=== PATIENT | female | born 1990 | race Caucasian/White ===

== ENCOUNTER 2020-09-16 11:24 | Inpatient (IN) ==
[2020-09-16] MEDS ORDERED: OXYTOCIN 30 UNITS/500 ML BAG IV PRN ×2 (12:43)
[2020-09-16 13:06] LABS: Hematocrit (blood only) 37.8 % (37-47); Hemoglobin 13.1 g/dL (12.0-16.0); Mean Corpuscular Hemoglobin 29.6 pg (25-34); Mean Corpuscular Hgb Conc 34.7 g/dL (32-36); Mean Corpuscular Volume 85.5 fL (80-100); Mean Platelet Volume 11.5 fL (7.4-10.4); Platelet Count 246 K/uL (130-400); RDW Coefficient of Variation 13.3 % (11.5-14.5); Red Blood Count 4.42 M/uL (4.2-5.4); White Blood Count 14.91 K/uL (4.8-10.8)
--- NOTE | 2020-09-16 13:11 | History & Physical Report ---
Date of Service September 16, 2020 Assessment & Plan (1) Need for rhogam due to Rh negative mother: Claudette is a 30 y/o female currently at 39-3/7 WGA with an SÁNCHEZ 09/20/20 as determined by LMP who is here for elective IOL (in setting of worsening gallstone symptoms) after successful Dawson bulb placement last night. Her has been notable for cholelithiasis without cholecystitis, fibroid uterus, and an Rh negative status. * s/p Dawson bulb placement last night -- still in place upon arrival today * NST reactive, cat I tracing * continue with eIOL -- initiate pitocin per protocol / anticipate * Tylenol 1g IV q8h p.r.n. for pain management re: biliary pain. If needed can consider stronger IV analgesia, avoiding NSAIDs * patient requesting epidural -- will consult anesthesia when appropriate * plans on * Rh(-) : will require Rhogam, antiD labs * npo except sips/chips, iv lock, labs (2) Supervision of normal intrauterine in primigravida: (3) ADD (attention deficit disorder): (4) Cholelithiasis: (5) Uterine fibroid complicating care, baby not yet delivered: Admission and Anticipated Discharge Date Admission Date: September 16, 2020 History of Present Illness Primary Care Provider: Liudmila Galvan MD Claudette is a 30 y/o female currently at 39-3/7 WGA with an SÁNCHEZ 09/20/20 as determined by LMP who is here for elective IOL (in setting of worsening gallstone symptoms) after successful Dawson bulb placement last night. Her has been notable for cholelithiasis without cholecystitis, fibroid uterus, and an Rh negative status. Says that as of this morning, has had more RUQ pain -- started after nothing in particular. Ate an egg sandwich this morning, which usually does not exacerbate this pain for her. Nothing since that time. Has tried drinking some water. Says it waxes and wanes but is quite noticeable, also extends into her back. No major changes from prior pains she's experienced in this area. Last night, she said she had several sets of contractions that were perhaps 25 minutes apart. None since that time. She said that she noticed some small spots of blood in her underwear this morning, but no gushes or continuous stream / bloody show. No LOF that she can endorse Good movement. Had regular appointments with OB. Labs: (Date 02/14/20) Blood type: B- Antibody screen: negative H.4 -- 09/11 Hct: 39.5 -- 09/11 Plt: 283 -- 09/11 Rubella: immune VDRL/RPR: NR Gonorrhea: negative Chlamydia: negative HIV: negative HbSAg: negative GBS: negative Allergies Allergy/AdvReac Type Severity Reaction Status Date / Time sulfamethoxazole Allergy Intermediate HIVES A Verified 09/15/20 10:21 [From Bactrim] CHILD trimethoprim [From Bactrim] Allergy Intermediate HIVES A Verified 09/15/20 10: CHILD Home Medications Medication Instructions Recorded Confirmed Type prenat.vits,manuel,zkp-nioj-[id number] 1 tab PO DAILY 02/10/20 09/15/20 History valacyclovir 1,000 mg PO DIRECTED PRN 06/01/20 09/15/20 History Patient History Medical History ADD (attention deficit disorder) HSV infection Surgical History History of tonsillectomy History of tooth extraction Family History Mother Hypothyroidism Father Lung cancer Grandfather Lung cancer Family/Other Breast cancer maternal cousin Denies family history of Ovarian cancer Prostate cancer Myocardial infarction Colorectal cancer Social History Smoking Status: Never smoker Second Hand Exposure: No; Hx Alcohol Use: No Hx Substance Use: No Preferred Language: Greenlandic Communication Ability: Effective Air Pollution Inspector Required: No Beliefs That Will Affect Care: None marital status: marital status details: Noe (30) [phone] Current Living Situation: Spouse Current Living Situation Comment: lives with spouse, 2 dogs. 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 Other Information That Helps Us Care for You: No Feels Safe at Home: Yes Safety Concerns: Feels Safe At This Time Childhood Exposure to Second-Hand Smoke: No Dental Care, Regularly: Yes Physical Activity Frequency: 3-4 Times per Week Assistive Devices: None Review of Systems no fever, no chills and no sweats denies headache at present -- maybe a small amount this AM no dyspnea no chest pain, no dyspnea, no dyspnea at rest and no palpitations no dysuria no breast pain Physical Exam Physical Exam: General: Alert, oriented. No acute distress. Cardiac: Regular rate and rhythm, no murmurs/rubs/gallops. Respiratory: Clear to auscultation bilaterally a/p, no wheezes/rales/rhonchi. No increased work of breathing. Symmetrical chest rise. No respiratory distress. Abdomen: Gravid. Mild TTP in the RUQ, Kwon's mildly positive. Pelvic: Per Dr. Alfaro -- /-3; est weight 7-8lb Lower Extremities: No lower extremity edema or swelling. No deep calf pain. Milind's negative bilaterally Results & Data ([facility]) Vital Signs (Past 12 Hours) Vital Signs Temp Pulse Resp BP 09/16/20 12:24 36.8 C 93 H 20 118/77 Monitoring External Monitor Baseline: 145 Variability: moderate 6-25 Accelerations: 15x15 Decelerations: none Tocodynamometer Quality: irregular Supervising Physician Co-Signing Physician Notes Patient seen and evaluated and agree with the above findings and plan Resident Activity Tracking Resident Involvement: Resident Care Provided Care Provided: Adult Hospital Medicine and OB Delivery (1) Cholelithiasis Biliary obstruction: without biliary obstruction Cholecystitis acuity: unspecified acuity Cholecystitis presence: with cholecystitis Cholelithiasis location: gallbladder Qualified Code(s): K80.10 - Calculus of gallbladder with chronic cholecystitis without obstruction
[2020-09-16] MEDS: LACTATED RINGER'S 1,000 ML IV PRN ×4 (13:32→23:12)
[2020-09-16] MEDS ORDERED: fentaNYL citrate 100 MCG/2 ML VIAL ONE ×3 (16:48→20:30)
[2020-09-16] MEDS ORDERED: ePHEDrine sulfate 50 MG/ML AMP ONE ×2 (16:48→20:29)
[2020-09-16] MEDS ORDERED: SODIUM CHLORIDE 0.9% INJ 10 ML VIAL ONE ×3 (16:48→20:29)
[2020-09-16] MEDS ORDERED: BUPIVACAINE 0.25% 30 ML VIAL ONE ×3 (16:48→20:30)
[2020-09-16] MEDS ORDERED: fentaNYL 2MCG/ML ROPIVACAINE 1.25MG/ML 100 ML BAG EPI ONE ×2 (16:49→20:30)
[2020-09-16] MEDS ORDERED: ePHEDrine sulfate 50 MG/ML AMP IV PRN ×2 (16:53→21:01)
[2020-09-16] MEDS ORDERED: diphenhydrAMINE 50 MG/ML VIAL IV PRN ×2 (16:53→21:01)
[2020-09-16] MEDS ORDERED: fentaNYL 2MCG/ML ROPIVACAINE 1.25MG/ML 100 ML BAG EPI PRN ×2 (16:53→21:01)
[2020-09-16] MEDS ORDERED: ONDANSETRON INJ 2 MG/ML 2 ML VIAL IV PRN ×2 (16:53→21:01)
[2020-09-16] MEDS ORDERED: NALOXONE HCL 1 MG in SODIUM CHLORIDE 0.9% 1000ML 1,000 ML IV PRN ×2 (16:53→21:01)
[2020-09-16] MEDS ORDERED: NALOXONE HCL 0.4 MG/1 ML VIAL/CARP IV PRN ×2 (16:53→21:01)
--- NOTE | 2020-09-16 16:54 | Anesthesiology Consultation ---
Date of Service September 16, 2020 Assessment & Plan ASA ASA2 Proposed Anesthesia Anesthesia Type: Labor Epidural Risk / Benefits Reviewed With: PT / POA / Parent / Guardian, Accepts Plan and Informed Consent Obtained History Height/Weight Height: 5 ft 11 in Weight: 101.151 kg Allergies Allergy/AdvReac Type Severity Reaction Status Date / Time sulfamethoxazole Allergy Intermediate HIVES A Verified 09/16/20 17:01 [From Bactrim] CHILD trimethoprim [From Bactrim] Allergy Intermediate HIVES A Verified 09/16/20 17:01 CHILD Medications Home Medications Medication Instructions Recorded Confirmed Last Taken prenat.vits,manuel,klb-[id number]-[id number] 1 tab PO DAILY 02/10/20 09/15/20 09/11/20 08:00 Active Medications Generic Name Dose Route Start Last Admin Trade Name Freq PRN Reason Stop Dose Admin Oxytocin 30 units in 500 mls @ 10 mls/hr 09/16/20 12:43 09/16/20 16:00 Pitocin IV 09/18/20 12:42 0.6 units/hr .Q24H PRN 10 mls/hr Labor Induction/Augmentation Titration Protocol 0.6 UNITS/HR Lactated Ringer's 1,000 mls @ 125 mls/hr 09/16/20 12:43 09/16/20 17:24 Lr IV 09/18/20 12:42 125 mls/hr .Q8H PRN Infusion L&D Protocol Protocol Ropivacaine 100 ml 09/16/20 16:53 09/16/20 17:14 Fentanyl 2mcg/Ml Ropivacaine 1.25mg/Ml 100 Ml Bag EPI 09/17/20 16:52 12 ml PRN PRN Administration Pain R/T Labor Protocol Past Medical History Medical History ADD (attention deficit disorder) HSV infection Exercise / Class Metabolic Activity II 4-5 Yardwork/Stairs/Walk up hill Past Family History Family History Mother Hypothyroidism Father Lung cancer Grandfather Lung cancer Family/Other Breast cancer maternal cousin Denies family history of Ovarian cancer Prostate cancer Myocardial infarction Colorectal cancer Past Surgical History Surgical History History of tonsillectomy History of tooth extraction Past Anesthesia History No Hx of Anesthesia Complications and No Family Hx of Anesthesia Complications History of PONV No Hx of PONV and No Hx of Motion Sickness Social History Smoking Status: Never smoker Hx Alcohol Use: No Hx Substance Use: No substance use type: does not use Review of Systems denies fever/cough/ colds/ chest pain/ SOB/ CANDE denies CANDE Physical Exam Vital Signs Last Vital Signs Temp 36.7 C 09/16/20 16:53 Pulse 80 09/16/20 17:33 Resp 18 09/16/20 17:30 BP 121/77 09/16/20 17:31 Pulse Ox 99 09/16/20 17:33 ENMT Mouth: no TMJ abnormality and no dentition abnormality Thyromental Distance: > or= 3.5 Finger Breadths Mallampati Class: II Neck neck extension not limited Respiratory normal respiratory effort; no respiratory distress Auscultation: lungs clear to auscultation bilaterally Cardiovascular Rate/Rhythm: regular rate and regular rhythm Neurologic moves all extremities Psychiatric Orientation: alert and oriented x 3 Testing Laboratory Results 09/16/20 12:54 Blood Type B Negative 09/16/20 12:54 Antibody Screen NEGATIVE 09/16/20 12:54
[2020-09-16] MEDS ORDERED: NURSING L&D Epidural Breakthrough Pain Update ONE (19:12)
--- NOTE | 2020-09-16 19:46 | Communication Note ---
Date of Service: September 16, 2020 At 1940 , Pt. epidural was bolused w/ 12 ml 0.17% bupivacaine + 100 mcgs fentanyl w/ incremental asp. and injec.;neg asp. Vital signs stable;Pt c/o pain 8/10.
[2020-09-16] MEDS ORDERED: PROMETHAZINE HCL 25 MG in SODIUM CHLORIDE 0.9% 50 ML IV PRN (21:01)
--- NOTE | 2020-09-16 21:04 | Labor Progress Brief Note ---
Date of Service September 16, 2020 Subjective Reason For Note: Routine Evaluation Assessment & Plan (1) Supervision of normal intrauterine in primigravida: Minimal change, AROM clr, Continue Pitocin, Cat 1 Admission and Anticipated Discharge Date Admission Date: September 16, 2020 Physical Exam Genitourinary: OB Exam Abdomen: + vertex Manual OB Exam: + cervical dilation (4.5), + cervical effacement (70), + station -2 and + amniotic fluid clear OB Exam Monitor Tracing: + external FHT monitor used, + external uterine monitor used, + category I and + normal FHT variability Results & Data ([facility]) Vital Signs (Past 12 Hours) Vital Signs Temp Pulse Resp BP Pulse Ox 09/16/20 20:59 82 109/70 09/16/20 20:58 90 100 09/16/20 20:56 105 H 86/53 L 09/16/20 20:55 86 87/50 L 09/16/20 20:53 108 H 100 09/16/20 20:50 89 18 128/63 09/16/20 20:48 83 99 09/16/20 20:43 96 H 138/74 100 09/16/20 20:39 79 94 09/16/20 20:38 81 94 09/16/20 20:33 73 100 09/16/20 20:28 82 98 09/16/20 20:27 69 108/60 09/16/20 20:23 82 100 09/16/20 20:18 76 97 09/16/20 20:13 67 98 09/16/20 20:12 70 111/68 09/16/20 20:08 73 99 09/16/20 20:03 72 98 09/16/20 19:58 74 98 09/16/20 19:57 72 106/69 09/16/20 19:54 74 114/71 09/16/20 19:53 74 97 09/16/20 19:51 69 118/73 09/16/20 19:48 76 117/72 98 09/16/20 19:45 74 118/70 09/16/20 19:43 74 98 09/16/20 19:42 83 18 116/78 09/16/20 19:38 71 98 09/16/20 19:33 78 97 09/16/20 19:31 76 121/69 09/16/20 19:28 73 98 09/16/20 19:23 82 98 09/16/20 19:18 83 99 09/16/20 19:16 75 127/73 09/16/20 19:13 73 98 09/16/20 19:08 80 98 09/16/20 19:03 89 99 09/16/20 19:01 36.7 C 72 18 118/74 09/16/20 18:58 75 98 09/16/20 18:53 86 98 09/16/20 18:48 78 99 09/16/20 18:46 71 118/69 09/16/20 18:43 84 99 09/16/20 18:38 75 99 09/16/20 18:33 88 99 09/16/20 18:31 69 120/75 09/16/20 18:30 20 09/16/20 18:28 75 99 09/16/20 18:23 72 98 09/16/20 18:18 72 99 09/16/20 18:16 73 105/57 L 09/16/20 18:13 76 98 09/16/20 18:08 70 98 09/16/20 18:03 88 97 09/16/20 18:01 85 116/73 09/16/20 18:00 20 09/16/20 17:58 86 98 09/16/20 17:53 71 99 09/16/20 17:48 79 99 09/16/20 17:46 74 128/73 09/16/20 17:43 80 98 09/16/20 17:38 81 99 09/16/20 17:33 80 99 09/16/20 17:31 157 H 121/77 09/16/20 17:30 18 09/16/20 17:29 81 124/80 09/16/20 17:28 83 100 09/16/20 17:27 84 114/69 09/16/20 17:25 83 121/72 09/16/20 17:23 92 H 119/68 100 09/16/20 17:21 78 20 115/67 09/16/20 17:19 96 H 20 129/79 09/16/20 17:18 86 100 09/16/20 17:17 98 H 112/61 09/16/20 17:15 77 119/69 09/16/20 17:13 92 H 139/71 09/16/20 17:11 88 20 136/80 09/16/20 16:53 36.7 C 87 20 124/71 09/16/20 16:31 73 118/84 09/16/20 15:29 36.9 C 75 20 99/55 L 09/16/20 14:31 85 103/57 L 09/16/20 13:37 93 H 117/77 09/16/20 12:24 36.8 C 93 H 20 118/77 Coding Level of Care Code None Diagnoses Supervision of normal intrauterine in primigravida Z34.00
--- NOTE | 2020-09-16 21:56 | Labor Progress Brief Note ---
Date of Service September 16, 2020 Subjective Reason For Note: Routine Evaluation Assessment & Plan (1) Supervision of normal intrauterine in primigravida: Minimal change, AROM clr, Continue Pitocin, Cat 1 Admission and Anticipated Discharge Date Admission Date: September 16, 2020 Physical Exam Genitourinary: OB Exam Abdomen: + vertex Manual OB Exam: + cervical dilation (4.5), + cervical effacement 70%, + station -2 and + amniotic fluid clear OB Exam Monitor Tracing: + external uterine monitor used, + intra- uterine pressure catheter used and + category I; no early decelerations present, no late decelerations present and no variable decelerations Results & Data ([facility]) Vital Signs (Past 12 Hours) Vital Signs Temp Pulse Resp BP Pulse Ox 09/16/20 21:49 81 124/79 09/16/20 21:48 82 100 09/16/20 21:43 74 100 09/16/20 21:38 67 100 09/16/20 21:33 74 100 09/16/20 21:32 67 18 112/61 09/16/20 21:28 67 100 09/16/20 21:23 76 100 09/16/20 21:18 75 100 09/16/20 21:17 75 107/59 L 09/16/20 21:13 74 100 09/16/20 21:12 77 106/58 L 09/16/20 21:08 79 100 09/16/20 21:07 71 18 113/55 L 09/16/20 21:04 36.5 C 71 18 114/67 09/16/20 21:03 84 100 09/16/20 21:01 76 114/71 09/16/20 20:59 82 109/70 09/16/20 20:58 90 100 09/16/20 20:56 105 H 86/53 L 09/16/20 20:55 86 87/50 L 09/16/20 20:53 108 H 100 09/16/20 20:50 89 18 128/63 09/16/20 20:48 83 99 09/16/20 20:43 96 H 138/74 100 09/16/20 20:39 79 94 09/16/20 20:38 81 94 09/16/20 20:33 73 100 09/16/20 20:28 82 98 06/16/21 20:27 69 108/60 09/16/20 20:23 82 100 09/16/20 20:18 76 97 09/16/20 20:13 67 98 09/16/20 20:12 70 111/68 09/16/20 20:08 73 99 09/16/20 20:03 72 98 09/16/20 19:58 74 98 09/16/20 19:57 72 106/69 09/16/20 19:54 74 114/71 09/16/20 19:53 74 97 09/16/20 19:51 69 118/73 09/16/20 19:48 76 117/72 98 09/16/20 19:45 74 118/70 09/16/20 19:43 74 98 09/16/20 19:42 83 18 116/78 09/16/20 19:38 71 98 09/16/20 19:33 78 97 09/16/20 19:31 76 121/69 09/16/20 19:28 73 98 09/16/20 19:23 82 98 09/16/20 19:18 83 99 09/16/20 19:16 75 127/73 09/16/20 19:13 73 98 09/16/20 19:08 80 98 09/16/20 19:03 89 99 09/16/20 19:01 36.7 C 72 18 118/74 09/16/20 18:58 75 98 09/16/20 18:53 86 98 09/16/20 18:48 78 99 09/16/20 18:46 71 118/69 09/16/20 18:43 84 99 09/16/20 18:38 75 99 09/16/20 18:33 88 99 09/16/20 18:31 69 120/75 09/16/20 18:30 20 09/16/20 18:28 75 99 09/16/20 18:23 72 98 09/16/20 18:18 72 99 09/16/20 18:16 73 105/57 L 09/16/20 18:13 76 98 09/16/20 18:08 70 98 09/16/20 18:03 88 97 09/16/20 18:01 85 116/73 09/16/20 18:00 20 09/16/20 17:58 86 98 09/16/20 17:53 71 99 09/16/20 17:48 79 99 09/16/20 17:46 74 128/73 09/16/20 17:43 80 98 09/16/20 17:38 81 99 09/16/20 17:33 80 99 09/16/20 17:31 157 H 121/77 09/16/20 17:30 18 09/16/20 17:29 81 124/80 09/16/20 17:28 83 100 09/16/20 17:27 84 114/69 09/16/20 17:25 83 121/72 09/16/20 17:23 92 H 119/68 100 09/16/20 17:21 78 20 115/67 09/16/20 17:19 96 H 20 129/79 09/16/20 17:18 86 100 09/16/20 17:17 98 H 112/61 09/16/20 17:15 77 119/69 09/16/20 17:13 92 H 139/71 09/16/20 17:11 88 20 136/80 09/16/20 16:53 36.7 C 87 20 124/71 09/16/20 16:31 73 118/84 09/16/20 15:29 36.9 C 75 20 99/55 L 09/16/20 14:31 85 103/57 L 09/16/20 13:37 93 H 117/77 09/16/20 12:24 36.8 C 93 H 20 118/77 Coding Level of Care Code None Diagnoses Supervision of normal intrauterine in primigravida Z34.00
[2020-09-17] MEDS: LACTATED RINGER'S 1,000 ML IV PRN ×2 (03:16→08:31)
--- NOTE | 2020-09-17 06:59 | Labor Progress Brief Note ---
Date of Service September 17, 2020 Subjective Reason For Note: Routine Evaluation Assessment & Plan (1) Supervision of normal intrauterine in primigravida: Minimal change, AROM clr, Continue Pitocin, IUP placed, Cat 1 Admission and Anticipated Discharge Date Admission Date: September 16, 2020 Physical Exam Genitourinary: OB Exam Abdomen: + vertex Manual OB Exam: + cervical dilation (4.5), + cervical effacement 70%, + station -2 and + amniotic fluid clear OB Exam Monitor Tracing: + external uterine monitor used, + intra- uterine pressure catheter used, + category I and + normal FHT variability; no early decelerations present, no late decelerations present and no variable decelerations IUP placed Results & Data ([facility]) Vital Signs (Past 12 Hours) Vital Signs Temp Pulse Resp BP Pulse Ox 09/17/20 06:53 97 H 100 09/17/20 06:48 94 H 118/73 100 09/17/20 06:43 99 H 100 09/17/20 06:38 99 H 97 09/17/20 06:33 107 H 132/78 100 09/17/20 06:28 108 H 100 09/17/20 06:23 108 H 100 09/17/20 06:18 99 H 100 09/17/20 06:17 114 H 122/82 09/17/20 06:13 105 H 100 09/17/20 06:08 110 H 100 09/17/20 06:03 108 H 128/82 100 09/17/20 05:58 103 H 100 09/17/20 05:53 105 H 100 09/17/20 05:48 101 H 100 09/17/20 05:47 104 H 122/80 09/17/20 05:43 110 H 100 09/17/20 05:38 104 H 100 09/17/20 05:34 117 H 127/87 09/17/20 05:33 122 H 100 09/17/20 05:28 110 H 100 09/17/20 05:23 104 H 100 09/17/20 05:18 115 H 100 09/17/20 05:17 112 H 122/80 09/17/20 05:13 121 H 100 09/17/20 05:09 36.7 C 18 09/17/20 05:08 114 H 100 09/17/20 05:03 104 H 100 09/17/20 05:02 112 H 120/81 09/17/20 04:58 104 H 100 09/17/20 04:53 111 H 100 09/17/20 04:49 106 H 115/77 09/17/20 04:48 103 H 99 09/17/20 04:43 105 H 99 09/17/20 04:38 105 H 99 09/17/20 04:33 99 H 100 09/17/20 04:32 108 H 18 115/75 09/17/20 04:28 100 H 100 09/17/20 04:23 97 H 100 09/17/20 04:18 94 H 100 09/17/20 04:17 103 H 120/77 09/17/20 04:13 89 100 09/17/20 04:08 91 H 100 09/17/20 04:04 88 18 121/76 09/17/20 04:03 85 100 09/17/20 03:58 83 100 09/17/20 03:53 94 H 100 09/17/20 03:49 83 106/64 09/17/20 03:48 83 100 09/17/20 03:43 87 100 09/17/20 03:40 92 H 89 L 09/17/20 03:38 87 100 09/17/20 03:34 100 H 125/65 09/17/20 03:33 83 100 09/17/20 03:28 99 H 100 09/17/20 03:27 113 H 90 09/17/20 03:23 82 100 09/17/20 03:18 83 111/73 100 09/17/20 03:13 114 H 100 09/17/20 03:11 36.9 C 18 09/17/20 03:08 94 H 100 09/17/20 03:03 99 H 121/79 100 09/17/20 03:00 16 09/17/20 02:58 97 H 100 09/17/20 02:53 95 H 100 09/17/20 02:48 89 127/77 100 09/17/20 02:43 84 100 09/17/20 02:38 106 H 100 09/17/20 02:33 110 H 98 09/17/20 02:30 18 09/17/20 02:28 102 H 100 09/17/20 02:23 87 100 09/17/20 02:19 90 122/79 09/17/20 02:18 89 100 09/17/20 02:13 118 H 100 09/17/20 02:08 96 H 100 09/17/20 02:03 92 H 100 09/17/20 02:02 98 H 122/77 09/17/20 01:58 90 100 09/17/20 01:53 89 100 09/17/20 01:48 88 100 09/17/20 01:47 96 H 125/72 09/17/20 01:43 97 H 100 09/17/20 01:38 107 H 100 09/17/20 01:34 94 H 18 125/79 09/17/20 01:33 93 H 100 09/17/20 01:28 93 H 100 09/17/20 01:25 36.6 C 18 09/17/20 01:23 126 H 100 09/17/20 01:18 119 H 133/79 86 L 09/17/20 01:13 79 100 09/17/20 01:08 77 100 09/17/20 01:03 81 117/70 100 09/17/20 00:58 72 100 09/17/20 00:53 76 100 09/17/20 00:51 95 H 80 L 09/17/20 00:49 68 101/56 L 09/17/20 00:48 68 100 09/17/20 00:43 73 100 09/17/20 00:38 69 100 09/17/20 00:34 72 99/58 L 09/17/20 00:33 71 100 09/17/20 00:28 68 100 09/17/20 00:23 69 100 09/17/20 00:18 69 18 100/56 L 100 09/17/20 00:13 71 100 09/17/20 00:08 70 100 09/17/20 00:03 67 100 09/17/20 00:02 68 100/58 L 09/16/20 23:58 67 100 09/16/20 23:53 68 100 09/16/20 23:52 79 94 09/16/20 23:49 36.6 C 74 18 98/54 L 09/16/20 23:48 86 100 09/16/20 23:43 78 100 09/16/20 23:38 82 100 09/16/20 23:33 83 124/75 100 09/16/20 23:31 75 90 09/16/20 23:28 66 100 09/16/20 23:25 101 H 94 09/16/20 23:23 83 100 09/16/20 23:20 88 92 09/16/20 23:18 67 111/73 100 09/16/20 23:13 81 100 09/16/20 23:08 91 H 100 09/16/20 23:03 70 119/75 100 09/16/20 22:58 69 100 09/16/20 22:53 67 100 09/16/20 22:48 70 100 09/16/20 22:47 77 16 115/75 09/16/20 22:43 70 100 09/16/20 22:38 84 100 09/16/20 22:33 82 110/75 100 09/16/20 22:28 75 100 09/16/20 22:23 70 100 09/16/20 22:18 73 117/74 100 09/16/20 22:13 85 100 09/16/20 22:12 36.5 C 18 09/16/20 22:08 36.5 C 85 18 100 09/16/20 22:07 98 H 93 09/16/20 22:04 88 116/74 09/16/20 22:03 86 100 09/16/20 21:58 114 H 100 09/16/20 21:56 92 H 92 09/16/20 21:53 81 100 09/16/20 21:49 81 124/79 09/16/20 21:48 82 100 09/16/20 21:43 74 100 09/16/20 21:38 67 100 09/16/20 21:33 74 100 09/16/20 21:32 67 18 112/61 09/16/20 21:28 67 100 09/16/20 21:23 76 100 09/16/20 21:18 75 100 09/16/20 21:17 75 107/59 L 09/16/20 21:13 74 100 09/16/20 21:12 77 106/58 L 09/16/20 21:08 79 100 09/16/20 21:07 71 18 113/55 L 09/16/20 21:04 36.5 C 71 18 114/67 09/16/20 21:03 84 100 09/16/20 21:01 76 114/71 09/16/20 20:59 82 109/70 09/16/20 20:58 90 100 09/16/20 20:56 105 H 86/53 L 09/16/20 20:55 86 87/50 L 09/16/20 20:53 108 H 100 09/16/20 20:50 89 18 128/63 09/16/20 20:48 83 99 09/16/20 20:43 96 H 138/74 100 09/16/20 20:39 79 94 09/16/20 20:38 81 94 09/16/20 20:33 73 100 09/16/20 20:28 82 98 09/16/20 20:27 69 108/60 09/16/20 20:23 82 100 09/16/20 20:18 76 97 09/16/20 20:13 67 98 09/16/20 20:12 70 111/68 09/16/20 20:08 73 99 09/16/20 20:03 72 98 09/16/20 19:58 74 98 09/16/20 19:57 72 106/69 09/16/20 19:54 74 114/71 09/16/20 19:53 74 97 09/16/20 19:51 69 118/73 09/16/20 19:48 76 117/72 98 09/16/20 19:45 74 118/70 09/16/20 19:43 74 98 09/16/20 19:42 83 18 116/78 09/16/20 19:38 71 98 09/16/20 19:33 78 97 09/16/20 19:31 76 121/69 09/16/20 19:28 73 98 09/16/20 19:23 82 98 09/16/20 19:18 83 99 09/16/20 19:16 75 127/73 09/16/20 19:13 73 98 09/16/20 19:08 80 98 09/16/20 19:03 89 99 09/16/20 19:01 36.7 C 72 18 118/74 Coding Level of Care Code None Diagnoses Supervision of normal intrauterine in primigravida Z34.00
[2020-09-17] MEDS ORDERED: OXYTOCIN 30 UNITS/500 ML BAG IV PRN (10:45)
[2020-09-17] MEDS ORDERED: SUPERCREAM 0.870% 15 GM JAR EXT PRN (10:45)
[2020-09-17] MEDS ORDERED: IBUPROFEN 600 MG TAB PO PRN (10:45)
[2020-09-17] MEDS ORDERED: HYDROCORTISONE ACETATE 25 MG SUPP PR PRN (10:45)
[2020-09-17] MEDS ORDERED: ACETAMINOPHEN 325 MG TAB PO PRN (10:45)
[2020-09-17] MEDS ORDERED: DIPHTHERIA/TETANUS/PERTUSSIS 0.5 ML SYR/VIAL IM ONE (10:45)
[2020-09-17] MEDS ORDERED: BENZOCAINE 20% AER SPR 82.5 GM CAN EXT PRN (10:45)
[2020-09-17] MEDS ORDERED: bisacodyL 10 MG SUPP PR PRN (10:45)
--- NOTE | 2020-09-17 10:54 | Delivery Summary ---
Vaginal Delivery Summary Date of Service September 17, 2020 This is a 30-year-old 1 P0 white female who presents at 39-4/7 weeks for induction because of ongoing gallbladder symptoms. She received Pitocin augmentation of her labor and effective and epidural analgesia. She pushed effectively over intact perineum for delivery of a viable female infant. After the head was delivered the rest of the infant delivered easily and was placed on the mother's abdomen for further attention and drying. The was vigorous. With gentle traction on the umbilical cord it avulsed, therefore manual removal of the placenta was performed. The placenta was able to be removed intact. Exploration of the uterine cavity revealed no retained tissue. Dilute Pitocin was used to to control bleeding. The perineum was intact with a superficial abrasion on the right labia. Estimated blood loss 400 cc. mother and infant doing well after delivery. Vaginal Delivery Summary [facility] Vaginal Delivery Charge Delivery Type Details: [facility] OB Procedure charges OB Charges 23882 Placenta (manual removal )
--- NOTE | 2020-09-17 12:31 | Anesthesia Procedure Note ---
Date of Service September 17, 2020 Anesthesia Post Epidural Note Vital Signs Vital Signs: Temp Pulse Resp BP Pulse Ox 37.2 C 119 H 18 121/70 86 L 09/17/20 09:00 09/17/20 12:27 09/17/20 11:36 09/17/20 12:21 09/17/20 12:27 Pain Intensity Abdomen: Pain Intensity: 7 Notes Mental Status: alert / awake / arousable and participated in evaluation Patient Amnestic to Procedure: No Nausea / Vomiting: adequately controlled Pain: adequately controlled Airway Patency, RR, SpO2: stable & adequate BP & HR: stable & adequate Hydration State: stable & adequate Neuraxial Anesthesia: was administered and sensory block is resolving Anesthetic Complications: no major complications apparent and Pt Satisfied with anesthetic care Epidural: Removed without complications and With tip intact
[2020-09-17] MEDS: DOCUSATE SODIUM 100 MG CAP PO SCH (20:58)
--- NOTE | 2020-09-18 07:02 | Obstetrical Progress Note ---
Date of Service September 18, 2020 Assessment & Plan (1) : S/p Day 1 - Feels well today. Eating well, voiding well, ambulating well. - Pain well-controlled with ibuprofen 600mg Q4H PRN. - Vital signs reviewed and WNL. - Hemoglobin reviewed. 13.1 (antepartum) - Blood Type: B-, antibody negative, GBS negative, Rubella Immune, COVID-19 negative - Continue routine care: encourage ambulation, monitor and control pain with Motrin PRN, continue regular OB diet, monitor lochia - Encourage breast feeding. - Pt counselled on discharge instructions - After discharge, will have 6-wk follow-up with Dr. Mullen Admission and Anticipated Discharge Date Admission Date: September 16, 2020 Supervising Physician Co-Signing Physician Notes Resident Physician Supervision Note: I interviewed and examined the patient. Discussed with Dr. Glasgow and agree with findings and plan as documented in the note. Any exceptions or clarifications are listed here: [None] Documented By: Zoraida Larkin MD, FACOG Subjective HPI Claudette Marvin is a 30 y/o female who is PPD 1 spontaneous vaginal delivery at 39 4/7 weeks. She reports feeling well overall this morning. No abdominal cramping and mild pain well managed on analgesics. Voiding well. Tolerating meals overnight without difficulty. Patient has been able to ambulate some. passing gas and no bowel movement. Has persistent lochia with some improvement this morning. Currently . Review of Systems Review of Systems: ROS Denies fever or chills. Denies shortness of breath or cough. Denies chest pain. Denies breast pain. Denies dysuria. Denies leg pain or leg swelling. Physical Exam Physical Exam: PE General: Alert, oriented. No acute distress. Cardiac: Regular rate and rhythm. No murmurs. Respiratory: Clear to auscultation bilaterally a/p, no wheezes/rales/rhonchi. No increased work of breathing. Symmetrical chest rise. No respiratory distress. Abdomen: Soft, nontender, nondistended. Bowel sounds present. Uterus: Uterine fundus firm, palpable 1 cm below umbilicus. Lower Extremities: No lower extremity edema or swelling. No deep calf pain. Milind's negative bilaterally. Results & Data ([facility]) Vital Signs (Past 12 Hours) Vital Signs Temp Pulse Resp BP 09/18/20 03:55 36.5 C 106 H 18 106/68 09/17/20 23:40 36.8 C 86 18 102/67 Resident Activity Tracking Resident Involvement: Resident Care Provided Care Provided: Adult Hospital Medicine (1) Weeks of gestation: 24 weeks Qualified Code(s): Z3A.24 - 24 weeks gestation of
[2020-09-18] MEDS: DOCUSATE SODIUM 100 MG CAP PO SCH (07:27)
[2020-09-18 07:42] LABS: Hemoglobin 10.5 g/dL (12.0-16.0); Mean Corpuscular Hemoglobin 29.2 pg (25-34); Mean Corpuscular Hgb Conc 33.9 g/dL (32-36); Mean Corpuscular Volume 86.1 fL (80-100); Mean Platelet Volume 11.1 fL (7.4-10.4); Platelet Count 200 K/uL (130-400); RDW Coefficient of Variation 13.7 % (11.5-14.5); RDW Standard Deviation 42.4 fL (36.4-46.3); White Blood Count 19.04 K/uL (4.8-10.8)
[2020-09-18] MEDS ORDERED: PRENATAL VITAMIN 1 TAB PO SCH (08:00)
[2020-09-18] MEDS ORDERED: bisacodyL 5 MG TABEC PO SCH (20:00)
== END 2020-09-18 15:28 | disposition home or self-care (01) | DRG 807 ==
LOC: 4S1 12:16 → 4S2 09-17 17:40

== ENCOUNTER 2022-09-22 07:25 | Inpatient (IN) ==
--- NOTE | 2022-09-22 07:50 | History & Physical Report ---
Date of Service September 22, 2022 Assessment & Plan (1) Encounter for induction of labor: (2) Need for rhogam due to Rh negative mother: Plan - Patient admitted to labor and delivery for initiation of medical induction of labor - Plan for Dawson bulb placement in AM followed by labor augmentation with Pitocin - Patient w/o evidence of regular contractions, thus oxytocin augmentation of labor will be started per protocol - Once contractions are progressing, will consider ROM - Will anticipate epidural as contractions arise - Labs pending Admission and Anticipated Discharge Date Admission Date: September 22, 2022 History of Present Illness Chief Complaint: Induction Primary Care Provider: Liudmila Galvan MD Claudette is a 32F currently at 40 0/7 with SÁNCHEZ 09/22/22 determined by LMP who is presenting to L&D for induction. Complications: Rh negative mother Reason for Induction/: Post-date Movement: Yes Fluid Loss/ROM: Yes Bloody show/discharge: Light, last night External FHT and uterine monitor: Category 1, tracing reactive, good FHT variability Last OB appointment: 09/21/22, regular care Labs: Blood Type: B - Antibody Screen: Negative Hg/Hct (today): Pending WBC/Plt (today): Pending Rubella: Immune RPR: Non-reactive Gonorrhea: Negative Chlamydia: Negative HIV: Negative HbSAg: Negative GBS: Negative ROS: - Denies fever, chills, sweats - Denies dyspnea or pleuritic pain - Denies chest pain, palpitations, or pressure - Denies breast pain - Denies dysuria - Denies headache or visual changes Allergies Allergy/AdvReac Type Severity Reaction Status Date / Time sulfamethoxazole Allergy Intermediate Hives (as Verified 09/21/22 10:48 [From Bactrim] child) trimethoprim [From Bactrim] Allergy Intermediate Hives (as Verified 09/21/22 10:48 child) mivacurium Allergy Unknown Acetylcholinesterase Verified 09/21/22 10:48 deficiency ("Borderline") succinylcholine Allergy Unknown Acetylcholinesterase Verified 09/21/22 10:48 deficiency ("Borderline") Home Medications Medication Instructions Recorded Confirmed Type prenat.vits,manuel,jgg-aubc-[id number] 1 tab PO DAILY 07/13/21 09/21/22 History Patient History Medical History Acetylcholinesterase deficiency ADD (attention deficit disorder) History of COVID-19 HSV infection Need for rhogam due to Rh negative mother Uterine fibroid Varicella vaccination Surgical History History of anesthesia reaction History of cholecystectomy History of tonsillectomy History of tooth extraction Family History Mother Hypothyroidism Father Lung cancer Multiple myeloma Grandfather Lung cancer Family/Other Breast cancer Denies family history of Ovarian cancer Prostate cancer Myocardial infarction Colorectal cancer Social History (Updated 09/22/22 @ 07:50 by Maya Hooper RN) Smoking Status: Never smoker Second Hand Exposure: No; Do You Dip or Chew Tobacco: No; Hx Alcohol Use: No Hx Substance Use: No Preferred Language: [place]an Communication Ability: Effective Visual Impairment: No Limitations Hearing Ability: Normal Facilities Clerk Required: No Beliefs That Will Affect Care: None marital status: marital status details: Noe Marvin (32) [phone] Current Living Situation: Spouse Current Living Situation Comment: lives with spouse, child, 2 dogs. 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 Other Information That Helps Us Care for You: No Feels Safe at Home: Yes Safety Concerns: Feels Safe At This Time Childhood Exposure to Second-Hand Smoke: No Diet: regular Dental Care, Regularly: Yes Physical Activity Frequency: 3-4 Times per Week Seatbelt Use: always Sunscreen Use: Yes Assistive Devices: None OB History Past Pregnancies Del. Date GA wks Lbr Lgth wt Sex Type del Anes Place Del Prov ? Comment 09/17/20 39 6lb 15.1oz F Ep idural [facility] Dr. Mullen No 11/17/21 11 Aborted-Spontaneous Dilation and curretage USED CAR MANAGER History USED CAR MANAGER Hx: No surgeries or abnormal PAPs STI Hx: No prior STI Physical Exam Physical Exam: General: Alert, oriented. No acute distress. Cardiac: Regular rate and rhythm, no murmurs/rubs/gallops. Respiratory: Clear to auscultation bilaterally a/p, no wheezes/rales/rhonchi. No increased work of breathing. Symmetrical chest rise. No respiratory distress. Abdomen: Gravid; reactive FHTs; Position: Vertex by Iain Maneuver Pelvic: JOSHUA pending per Dr. Liz (see attending attestation) Lower Extremities: No lower extremity edema or swelling. No deep calf pain. Milind's negative bilaterally. Supervising Physician Co-Signing Physician Notes Resident Physician Supervision Note: I interviewed and examined the patient. Discussed with Dr. Carlin and agree with findings and plan as documented in the note. Any exceptions or clarifications are listed here: [None] Documented By: Laura Liz MD, FACOG Resident Activity Tracking Resident Involvement: Resident Care Provided Care Provided: OB Delivery
[2022-09-22] MEDS ORDERED: OXYTOCIN 30 UNITS/500 ML BAG IV PRN ×3 (08:39→21:51)
[2022-09-22] MEDS ORDERED: LIDOCAINE 1% LOCAL 20 ML VIAL INFIL PRN (08:39)
--- NOTE | 2022-09-22 09:06 | Obstetrical Progress Note ---
Date of Service September 22, 2022 Assessment & Plan Admission and Anticipated Discharge Date Admission Date: September 22, 2022 Subjective We did attempt cervical Dawson however the balloon would not stay and kept fal ling out after reassessment of her cervix I think she is probably 2 cm we will start Pitocin induction despite inability to get the Dawson catheter into her appropriate place in the cervix Results & Data Vital Signs (Past 12 Hours) Vital Signs Pulse Resp BP 09/22/22 07:55 105 H 130/72 09/22/22 07:48 18 PG Care Time/CCT Total # of Minutes Spent Total Time Spent with Patient: Total time spent is greater than 50% in coordination of care (as documented) at patient's floor/unit and/or counseling patient: Coding Level of Care Code None Diagnoses
[2022-09-22] MEDS: LACTATED RINGER'S 1,000 ML IV PRN ×3 (09:07→20:13)
[2022-09-22 09:24] LABS: Hematocrit (blood only) 32.6 % (37.0-47.0); Hemoglobin 10.7 g/dl (12.0-16.0); Mean Corpuscular Hgb Conc 32.8 g/dL (32.0-36.0); Mean Corpuscular Volume 79.1 fL (80.0-100.0); Mean Platelet Volume 11.6 fL (9.4-12.4); Platelet Count 236 K/uL (130-400); RDW Coefficient of Variation 14.6 % (11.5-14.5); RDW Standard Deviation 41.1 fL (36.4-46.3); Red Blood Count 4.12 M/uL (4.20-5.40); White Blood Count 9.72 K/ul (4.8-10.8)
[2022-09-22] MEDS ORDERED: ePHEDrine sulfate 50 MG/ML AMP ONE (11:27)
[2022-09-22] MEDS ORDERED: SODIUM CHLORIDE 0.9% PF INJ 10 ML VIAL ONE (11:27)
[2022-09-22] MEDS ORDERED: fentaNYL citrate PF 100 MCG/2 ML VIAL ONE (11:27)
[2022-09-22] MEDS ORDERED: BUPIVACAINE 0.25% PF 30 ML VIAL ONE (11:28)
[2022-09-22] MEDS ORDERED: LIDOCAINE 2%/EPINEPHRINE 1:200,000 20 ML PF ONE (11:28)
[2022-09-22] MEDS ORDERED: fentaNYL 2MCG/ML ROPIVACAINE 1.25MG/ML 100 ML BAG EPI ONE (11:28)
--- NOTE | 2022-09-22 12:18 | Anesthesiology Consultation ---
Date of Service September 22, 2022 Assessment & Plan Chart Review Chart Review: Acceptable Risk for Labor Epidural Consults Requested none ASA ASA2 Proposed Anesthesia Anesthesia Type: Labor Epidural Risk / Benefits Reviewed With: PT / POA / Parent / Guardian, Accepts Plan and Informed Consent Obtained History Height/Weight Height: 5 ft 10 in Weight: 104.326 kg Allergies Allergy/AdvReac Type Severity Reaction Status Date / Time sulfamethoxazole Allergy Intermediate Hives (as Verified 09/21/22 10:48 [From Bactrim] child) trimethoprim [From Bactrim] Allergy Intermediate Hives (as Verified 09/21/22 10:48 child) mivacurium Allergy Unknown Acetylcholinesterase Verified 09/21/22 10:48 deficiency ("Borderline") succinylcholine Allergy Unknown Acetylcholinesterase Verified 09/21/22 10:48 deficiency ("Borderline") Medications Home Medications Medication Instructions Recorded Confirmed Last Taken prenat.vits,manuel,yot-zzew-hkiuv 1 tab PO DAILY 07/13/21 09/21/22 11/17/21 10:00 Active Medications Generic Name Dose Route Start Last Admin Trade Name Freq PRN Reason Stop Dose Admin Lactated Ringer's 1,000 mls @ 125 mls/hr 09/22/22 08:39 09/22/22 09:07 Lr IV 09/24/22 08:38 125 mls/hr .Q8H PRN Administration L&D Protocol Protocol Oxytocin 30 units in 500 mls @ 8 mls/hr 09/22/22 08:39 09/22/22 10:50 Pitocin IV 09/24/22 08:38 0.48 units/hr .Q24H PRN 8 mls/hr Labor Induction/Augmentation Titration Protocol 0.48 UNITS/HR Past Medical History Medical History Acetylcholinesterase deficiency Patient's aunt went in coma with surgery > Father and brother tested and positive/Patient tested "borderline" ADD (attention deficit disorder) no meds History of COVID-21 Mar 2021, mild, no further issues HSV infection Hx cold sores Need for rhogam due to Rh negative mother Supervision of normal intrauterine in primigravida Uterine fibroid monitoring Uterine fibroid complicating care, baby not yet delivered Varicella vaccination Exercise / Class Metabolic Activity II 4-5 Yardwork/Stairs/Walk up hill Past Family History Family History Mother Hypothyroidism Father Lung cancer Multiple myeloma Grandfather Lung cancer Family/Other Breast cancer maternal cousin Denies family history of Ovarian cancer Prostate cancer Myocardial infarction Colorectal cancer Past Surgical History Surgical History History of anesthesia reaction Patient's aunt went in coma with surgery > Father and brother tested and positive/Patient tested "borderline" History of cholecystectomy 10/28/20: Grade 1 view with head lifted. MAC 3, ETT 7.0. No postop issues per anesthesia progress note. History of tonsillectomy History of tooth extraction Past Anesthesia History No Hx of Anesthesia Complications and No Family Hx of Anesthesia Complications History of PONV No Hx of PONV and No Hx of Motion Sickness Social History Smoking Status: Never smoker Do You Dip or Chew Tobacco: No Hx Alcohol Use: No Hx Substance Use: No substance use type: does not use Physical Exam Vital Signs Last Vital Signs Temp 98.1 F 09/22/22 11:20 Pulse 75 09/22/22 12:15 Resp 18 09/22/22 11:20 BP 117/71 09/22/22 12:15 Pulse Ox 99 09/22/22 12:13 ENMT Mouth: no dentition abnormality Thyromental Distance: > or= 3.5 Finger Breadths Mallampati Class: II Neck normal visual inspection Respiratory normal respiratory effort Auscultation: lungs clear to auscultation bilaterally Cardiovascular Rate/Rhythm: regular rate and regular rhythm Testing Laboratory Results 09/22/22 09:01 Antibody Screen NEGATIVE 09/22/22 09:01
[2022-09-22] MEDS ORDERED: BUPIVACAINE 0.25% PF 30 ML VIAL EPI PRN (12:36)
[2022-09-22] MEDS ORDERED: LIDOCAINE 2% MPF LOCAL 5 ML VIAL EPI PRN (12:36)
[2022-09-22] MEDS ORDERED: fentaNYL citrate PF 100 MCG/2 ML VIAL EPI PRN (12:36)
[2022-09-22] MEDS ORDERED: NALOXONE HCL 1 MG in SODIUM CHLORIDE 0.9% 1000ML 1,000 ML IV PRN (12:36)
[2022-09-22] MEDS ORDERED: fentaNYL citrate PF 100 MCG/2 ML VIAL EPI STA (12:36)
[2022-09-22] MEDS ORDERED: ROPIVACAINE 0.5% PF 5 MG/ML 20 ML VIAL EPI PRN (12:36)
[2022-09-22] MEDS ORDERED: NALBUPHINE HCL INJ 10 MG/ML AMP IV PRN (12:36)
[2022-09-22] MEDS ORDERED: BUPIVACAINE 0.25% PF 30 ML VIAL EPI STA (12:36)
[2022-09-22] MEDS ORDERED: NALOXONE HCL 0.4 MG/1 ML VIAL/CARP IV PRN (12:36)
[2022-09-22] MEDS ORDERED: ePHEDrine sulfate 50 MG/ML AMP IV PRN (12:36)
[2022-09-22] MEDS ORDERED: LIDOCAINE 2%/EPINEPHRINE 1:200,000 20 ML PF EPI STA (12:36)
[2022-09-22] MEDS ORDERED: SODIUM CHLORIDE 0.9% PF INJ 10 ML VIAL EPI STA (12:36)
[2022-09-22] MEDS ORDERED: diphenhydrAMINE 50 MG/ML VIAL IV PRN (12:36)
[2022-09-22] MEDS ORDERED: SODIUM CHLORIDE 0.9% PF INJ 10 ML VIAL EPI PRN (12:36)
[2022-09-22] MEDS ORDERED: ONDANSETRON INJ 2 MG/ML 2 ML VIAL IV PRN (12:36)
[2022-09-22] MEDS ORDERED: fentaNYL 2MCG/ML ROPIVACAINE 1.25MG/ML 100 ML BAG EPI PRN (12:36)
[2022-09-22] MEDS ORDERED: NURSING L&D Epidural Breakthrough Pain Update ONE (13:40)
--- NOTE | 2022-09-22 20:53 | Anesthesia Procedure Note ---
Date of Service September 22, 2022 Anesthesia Epidural Re-Dose Vital Signs Temp Pulse Resp BP Pulse Ox 98.1 F 88 18 114/71 93 09/22/22 19:10 09/22/22 20:50 09/22/22 19:10 09/22/22 20:42 09/22/22 20:50 Notes Pain Intensity: 2 Dilatation (cm): 9.0 Effacement (%): 100 Called by nursing to evaluate epidural as the patient is having increased pain. The epidural was re-dosed with the following medications after negative aspiration of the epidural catheter for CSF/HEME. 4mL of 0.25% Bupivacaine and 50mcg of fentanyl After Epidural Re-Dose Mental Status: alert / awake / arousable Pain: improving with treatment Airway Patency, RR, SpO2: stable & adequate BP & HR: stable & adequate
--- NOTE | 2022-09-22 21:27 | Delivery Summary ---
Vaginal Delivery Summary Date of Service September 22, 2022 Vaginal Delivery Summary Patient induced electively at 40 weeks second baby group B strep negative COVID- negative was induced with Pitocin and then artificial rupture of membranes had an epidural progressed to fully dilated pushed over 2 total contractions delivering baby in occiput anterior position fluid was clear there was no nuchal cord gentle traction the baby no excessive force baby was delivered easily and was vigorous live male infant cord clamped and cut cord blood obtained placenta removed with traction small first-degree tear repaired with 3-0 Vicryl on delivery of the placenta oxytocin was started and uterine tone improved sponge and instrument counts were correct at estimated blood loss 200 mL
[2022-09-22] MEDS ORDERED: IBUPROFEN 600 MG TAB PO PRN (21:51)
[2022-09-22] MEDS ORDERED: BENZOCAINE 20% AER SPR 82.5 GM CAN EXT PRN (21:51)
[2022-09-22] MEDS ORDERED: DIPHTHERIA/TETANUS/PERTUSSIS Vaccine (Tdap, Age 7+yrs) 0.5mL SYR/VL IM ONE (21:51)
[2022-09-22] MEDS ORDERED: ACETAMINOPHEN 325 MG TAB PO PRN (21:51)
[2022-09-22] MEDS ORDERED: HYDROCORTISONE ACETATE 25 MG SUPP PR PRN (21:51)
[2022-09-22] MEDS ORDERED: oxyCODONE/ACETAMINOPHEN 5mg/325mg TAB PO PRN (21:51)
--- NOTE | 2022-09-22 22:03 | Anesthesia Procedure Note ---
Date of Service September 22, 2022 Anesthesia Post Epidural Note Vital Signs Vital Signs: Temp Pulse Resp BP Pulse Ox 98.1 F 99 H 18 146/83 H 91 09/22/22 19:10 09/22/22 21:57 09/22/22 19:10 09/22/22 21:57 09/22/22 21:26 Pain Intensity Abdomen: Pain Intensity: 5 Notes Mental Status: alert / awake / arousable and participated in evaluation Nausea / Vomiting: adequately controlled Pain: adequately controlled Airway Patency, RR, SpO2: stable & adequate BP & HR: stable & adequate Hydration State: stable & adequate Neuraxial Anesthesia: was administered and sensory block is resolving Anesthetic Complications: no major complications apparent and Pt Satisfied with anesthetic care Epidural: Removed without complications and With tip intact
--- NOTE | 2022-09-23 06:37 | Obstetrical Progress Note ---
Date of Service September 23, 2022 Assessment & Plan (1) Prior miscarriage with , antepartum: day 1 from delivery late last night doing well minimal bleeding pain controlled no extremity pain we will continue current care Subjective Ambulation: ambulating normally Voiding: no voiding problems Passing Gas:: Yes Diet Tolerance:: regular diet Lochia:: Small Constitutional: + as per Subjective / HPI Physical Exam Constitutional WD/WN, vitals as above well developed and well nourished Respiratory normal respiratory effort, lungs clear to auscultation normal respiratory effort Cardiovascular RRR, no murmur, no edema Gastrointestinal (Abdomen) normal bowel sounds, soft, nontender, no hepatosplenomegaly Results & Data Vital Signs (Past 12 Hours) Vital Signs Temp Pulse Pulse Pulse Resp BP BP 09/23/22 03:20 97.5 F L 72 18 100/66 09/22/22 23:50 97.9 F 97 H 16 121/75 09/22/22 23:44 98.2 F 87 18 124/79 09/22/22 19:10 98.1 F 18 09/22/22 23:22 96 H 120/69 09/22/22 23:12 107 H 117/73 09/22/22 22:57 93 H 152/89 H 09/22/22 22:42 83 118/74 09/22/22 22:27 100 H 125/75 09/22/22 22:12 86 129/79 09/22/22 21:57 99 H 146/83 H 09/22/22 21:42 105 H 126/96 09/22/22 21:27 98 H 135/88 09/22/22 21:26 106 H 09/22/22 21:23 94 H 09/22/22 21:18 99 H 09/22/22 21:13 157 H 09/22/22 21:08 97 H 09/22/22 21:03 79 09/22/22 20:58 75 09/22/22 20:57 74 123/78 09/22/22 20:53 81 09/22/22 20:50 88 09/22/22 20:48 88 09/22/22 20:43 75 09/22/22 20:42 73 114/71 09/22/22 20:38 72 09/22/22 20:33 79 09/22/22 20:28 77 09/22/22 20:27 93 H 117/63 09/22/22 20:23 73 09/22/22 20:22 84 09/22/22 20:18 70 09/22/22 20:13 69 09/22/22 20:12 73 129/62 09/22/22 20:08 64 09/22/22 20:03 67 09/22/22 19:58 70 09/22/22 19:57 66 115/64 09/22/22 19:53 73 09/22/22 19:48 85 09/22/22 19:43 83 09/22/22 19:42 83 117/66 09/22/22 19:38 73 09/22/22 19:37 71 110/62 09/22/22 19:34 77 106/61 09/22/22 19:33 73 09/22/22 19:32 79 115/72 09/22/22 19:30 81 114/73 09/22/22 19:28 69 09/22/22 19:27 81 109/57 L 09/22/22 19:23 65 09/22/22 19:18 67 09/22/22 19:13 09/22/22 19:13 84 09/22/22 19:13 80 132/71 09/22/22 19:08 72 09/22/22 19:03 70 09/22/22 18:58 71 09/22/22 18:57 65 120/66 09/22/22 18:53 67 09/22/22 18:48 67 09/22/22 18:43 09/22/22 18:43 65 09/22/22 18:43 67 116/63 09/22/22 18:38 68 Pulse Ox O2 Del Method 09/23/22 03:20 97 Room Air 09/22/22 23:50 98 Room Air 09/22/22 23:44 98 Room Air 09/22/22 19:10 09/22/22 23:22 09/22/22 23:12 09/22/22 22:57 09/22/22 22:42 09/22/22 22:27 09/22/22 22:12 09/22/22 21:57 09/22/22 21:42 09/22/22 21:27 09/22/22 21:26 91 09/22/22 21:23 98 06/22/23 21:18 99 09/22/22 21:13 100 09/22/22 21:08 100 09/22/22 21:03 98 09/22/22 20:58 98 09/22/22 20:57 09/22/22 20:53 99 09/22/22 20:50 93 09/22/22 20:48 98 09/22/22 20:43 99 09/22/22 20:42 09/22/22 20:38 98 09/22/22 20:33 98 09/22/22 20:28 98 09/22/22 20:27 09/22/22 20:23 99 09/22/22 20:22 92 09/22/22 20:18 99 09/22/22 20:13 99 09/22/22 20:12 09/22/22 20:08 98 09/22/22 20:03 98 09/22/22 19:58 98 09/22/22 19:57 09/22/22 19:53 98 09/22/22 19:48 98 09/22/22 19:43 98 09/22/22 19:42 09/22/22 19:38 99 09/22/22 19:37 09/22/22 19:34 09/22/22 19:33 99 09/22/22 19:32 09/22/22 19:30 09/22/22 19:28 99 09/22/22 19:27 09/22/22 19:23 99 09/22/22 19:18 99 09/22/22 19:13 99 09/22/22 19:13 09/22/22 19:13 09/22/22 19:08 99 09/22/22 19:03 99 09/22/22 18:58 98 09/22/22 18:57 09/22/22 18:53 99 09/22/22 18:48 98 09/22/22 18:43 99 09/22/22 18:43 09/22/22 18:43 09/22/22 18:38 98
[2022-09-23 07:37] LABS: Hematocrit (blood only) 31.2 % (37.0-47.0); Hemoglobin 10.3 g/dl (12.0-16.0); Mean Corpuscular Hemoglobin 26.2 pg (25.0-34.0); Mean Corpuscular Volume 79.4 fL (80.0-100.0); Platelet Count 232 K/uL (130-400); RDW Coefficient of Variation 14.6 % (11.5-14.5); Red Blood Count 3.93 M/uL (4.20-5.40)
[2022-09-23] MEDS ORDERED: PRENATAL VITAMIN 1 TAB PO SCH (08:00)
[2022-09-23] MEDS: DOCUSATE SODIUM 100 MG CAP PO SCH ×2 (08:03→20:47)
--- NOTE | 2022-09-23 14:14 | Ultrasound Report ---
US venous doppler LE RT HISTORY: 32 years-old Female r/o DVT, calf pain acute pain and swelling of the right lowe r extremity COMPARISON: 05/20/2022 TECHNIQUE: Multiple real-time sonographic images of the right lower extremity deep venous structures were obtained assessing grayscale appearance, color and spectral flow. FINDINGS: Normal flow, compressibility, phasicity and augmentation. IMPRESSION: No sonographic evidence of deep venous thrombosis. ACT 112: Negative or not required by law. The above report was generated using voice recognition software. It may contain grammatical, syntax o r spelling errors. Electronically signed by: J Carlos Moss M.D. 09/23/2022 2:12 PM
--- NOTE | 2022-09-23 14:18 | Obstetrical Progress Note ---
Date of Service September 23, 2022 Assessment & Plan Admission and Anticipated Discharge Date Admission Date: September 22, 2022 Subjective Pt requesting DC home. Rt leg pain - venous doppler neg for DVT. OK for DC 24h after delivery. Results & Data Vital Signs (Past 12 Hours) Vital Signs Temp Pulse Resp BP Pulse Ox O2 Del Method 09/23/22 12:30 37.1 C 85 18 104/66 97 Room Air 09/23/22 08:00 36.9 C 90 18 120/81 98 Room Air 09/23/22 03:20 36.4 C L 72 18 100/66 97 Room Air PG Care Time/CCT Total # of Minutes Spent Total Time Spent with Patient: Total time spent is greater than 50% in coordination of care (as documented) at patient's floor/unit and/or counseling patient: Coding Level of Care Code None Diagnoses
[2022-09-23] MEDS ORDERED: bisacodyL 5 MG TABEC PO SCH (20:00)
[2022-09-24] MEDS ORDERED: bisacodyL 10 MG SUPP PR PRN (21:51)
== END 2022-09-23 21:38 | disposition home or self-care (01) | DRG 806 ==
LOC: 4S1 07:25 → 4E2 23:57

== ENCOUNTER 2023-05-23 15:26 | Inpatient (IN) ==
--- NOTE | 2023-05-23 16:18 | Emergency Department Note ---
Impression & Plan Sepsis, Mastitis, Leukocytosis ED Provider Note NAME: YVETTE MARVIN AGE: 32 SEX: F : 1990 ARRIVES VIA: Walk-In INFORMANT: Patient ED PROVIDER(S): Oswaldo Juarez DO CHIEF COMPLAINT: fever, vomiting and breast pain HPI: Patient is a 32-year-old female who presents to the ER for right breast pain as well as fevers, nausea, and vomiting. Her symptoms started about 2 days ago with a crack in her nipple that she noticed. She is still pumping as her child is currently 7 months old. Patient notes that she has some left mid abdominal pain associated with nausea, and vomiting as well. Fevers have been as high as 102. She denies any headache or change in vision. No chest pain or shortness of breath. No cough or congestion. No other exacerbating or remitting factors. No dysuria, urgency, or frequency. No vaginal bleeding or vaginal discharge. No sick contacts that she is aware of. ADDITIONAL HISTORY OBTAINED: Per HPI Chronic Medical/Social Conditions Affecting Care: Per HPI PAST MEDICAL HISTORY:See Below PAST SURGICAL HISTORY:See Below FAMILY HISTORY:See Below SOCIAL HISTORY:See Below HOME MEDICATIONS:See Below ALLERGIES:See Below VITALS:See Below PHYSICAL EXAMINATION: GENERAL: Sitting up in bed, alert, well appearing, well nourished, no distress, non-toxic EYE EXAM: normal conjunctiva. PERRL and EOM's grossly intact. OROPHARYNX: no exudate, no erythema, lips, buccal mucosa, and tongue normal and mucous membranes are moist BREAST: Right breast with small area of erythema just lateral to the nipple at around 9:00. Engorgement of the duct at 11-10 o'clock. Evaluated with Abby at bedside NECK: supple, no nuchal rigidity, no adenopathy, non-tender LUNGS: Clear to auscultation. Normal chest wall mechanics HEART: no murmurs, S1 normal and S2 normal ABDOMEN: abdomen soft, non-tender, normo-active bowel sounds, no masses, no rebound or guarding. UPPER EXTREMITIES: upper extremities are grossly normal. LOWER EXTREMITIES: No pitting edema. NEURO EXAM: Normal sensorium, cranial nerves II-XII grossly intact, normal speech, no gross weakness of arms, no gross weakness of legs. MEDICAL DECISION MAKING: Patient is a 32-year-old female who presents ER for right breast pain. IV was established blood was obtained. Labs show mild leukocytosis of 18,000. No significant anemia. BMP along LFTs bilirubin and troponins were negative. Mag slightly low. UA was contaminated. was negative. CT abdomen pelvis showed no acute pathology with the pain in the left mid abdomen. Chest x-ray was clean. She was given IV Rocephin and fluids and updated bedside. She was discussed with the hospitalist that she was febrile tachycardic with a persistent heart rate in the 120s to 130s in light of IV fluid resuscitation with a likely mastitis. Consults/Care Managements Discussions: Per [facility] Triage Nursing notes reviewed. Limited review of prior medical records performed Vital Signs: reviewed and remarkable for febrile, tachycardic Differential diagnosis: Differential diagnosis includes etiologies such as sepsis, UTI, pneumonia, metabolic, electrolyte abnormalities, cardiac sources, intracerebral event, toxicologic, neurological, as well as others were entertained. ER treatment provided: See below Diagnostics interpreted by me include EKG and cardiac monitoring as listed below: -Cardiac Monitoring: An order was placed for continuous cardiac monitoring. The monitor shows a rate of 155 with sinus rhythm. -ECG: Sinus tachycardia rate 133 Normal axis No PVCs QTc 416 -Laboratory studies:Interpreted by me as stated above in MDM and shown below. Imaging studies: Xrays: As interpreted by me: Portable AP upright 1 view of the chest shows no focal CTs show: CT abdomen pelvis was Procedures:none Critical Care: None Past Med/Surg History Medical History Acetylcholinesterase deficiency Patient's aunt went in coma with surgery > Father and brother tested and positive/Patient tested "borderline" ADD (attention deficit disorder) no meds History of COVID-21 Mar 2021, mild, no further issues HSV infection Hx cold sores Need for rhogam due to Rh negative mother Supervision of normal intrauterine in primigravida Uterine fibroid monitoring Uterine fibroid complicating care, baby not yet delivered Varicella vaccination Surgical History History of anesthesia reaction Patient's aunt went in coma with surgery > Father and brother tested and positive/Patient tested "borderline" History of cholecystectomy 10/28/20: Grade 1 view with head lifted. MAC 3, ETT 7.0. No postop issues per anesthesia progress note. History of tonsillectomy History of tooth extraction Family History Mother Hypothyroidism Father Lung cancer Multiple myeloma Grandfather Lung cancer Family/Other Breast cancer maternal cousin Denies family history of Ovarian cancer Prostate cancer Myocardial infarction Colorectal cancer Social History (Updated 09/22/22 @ 07:50 by Maya Hooper RN) Smoking Status: Never smoker Second Hand Exposure: No; Do You Dip or Chew Tobacco: No; Hx Alcohol Use: No Hx Substance Use: No Preferred Language: Cymraes Communication Ability: Effective Visual Impairment: No Limitations Hearing Ability: Normal Mold Designer Required: No Beliefs That Will Affect Care: None marital status: marital status details: Noe Marvin (32) [phone] Current Living Situation: Spouse Current Living Situation Comment: lives with spouse, child, 2 dogs. 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 Feels Safe at Home: Yes Childhood Exposure to Second-Hand Smoke: No Diet: regular Dental Care, Regularly: Yes Physical Activity Frequency: 3-4 Times per Week Seatbelt Use: always Sunscreen Use: Yes Assistive Devices: None Allergies Allergies Allergy/AdvReac Type Severity Reaction Status Date / Time sulfamethoxazole Allergy Intermediate Hives (as Verified 05/23/23 18:45 [From Bactrim] child) trimethoprim [From Bactrim] Allergy Intermediate Hives (as Verified 05/23/23 18:45 child) mivacurium Allergy Unknown Acetylcholinesterase Verified 05/23/23 18:45 deficiency ("Borderline") succinylcholine Allergy Unknown Acetylcholinesterase Verified 05/23/23 18:45 deficiency ("Borderline") Home Meds Home Medications Medication Instructions Recorded Confirmed prenat.vits,manuel,[id number] 1 tab PO DAILY 07/13/21 05/23/23 Previous Rx's Medication Instructions Recorded triamcinolone acetonide 0.1 % 1 applic topical DAILY #15 grams 05/04/23 topical cream Results & Data (ED) Vital Signs Vital Signs - 24 hr 05/23/23 16:02 05/23/23 16:21 Temperature 37.7 C H Temperature Source Oral Pulse Rate 159 H 132 H Pulse Rhythm Regular Pulse Strength Normal Respiratory Rate 18 Respiratory Effort / Characteristics Non-Labored Spontaneous Respiratory Depth Normal Respiratory Pattern Regular Blood Pressure 96/66 L Blood Pressure Mean 76 Blood Pressure Position Sitting Pulse Oximetry 98 Oxygen Delivery Method Room Air Sepsis Recent Fever Within 48 Hours Yes Sepsis New/Unexplained Change in Mental Status No Sepsis Action Taken by Nursing Physician Notified Laboratory Data 05/23/23 16:25 05/23/23 16:25 Lab Results 05/23/23 05/23/23 05/23/23 Range/Units 16:25 16:40 17:10 WBC 18.39 H (4.8-10.8) K/ul RBC 5.00 (4.20-5.40) M/uL Hgb 14.8 (12.0-16.0) g/dl Hct 42.6 (37.0-47.0) % MCV 85.2 (80.0-100.0) fL MCH 29.6 (25.0-34.0) pg MCHC 34.7 (32.0-36.0) g/dL RDW Std Deviation 38.1 (36.4-46.3) fL RDW Coeff of [place] 12.3 (11.5-14.5) % Plt Count 271 (130-400) K/uL MPV 11.1 (9.4-12.4) fL Immature Gran % (Auto) 0.4 % Neut % (Auto) 88.7 % Lymph % (Auto) 5.2 % [place] % (Auto) 5.4 % Eos % (Auto) 0.1 % Baso % (Auto) 0.2 % Neut # (Auto) 16.31 H (1.40-6.50) K/uL Lymph # (Auto) 0.96 L (1.20-3.40) K/uL [place] # (Auto) 1.00 H (0.11-0.59) K/uL Eos # (Auto) 0.01 (0.00-0.50) K/uL Baso # (Auto) 0.04 (0.00-0.20) K/uL Immature Gran # (Auto) 0.07 (0.01-0.20) K/uL Sodium 136 (136-145) mmol/L Potassium 3.5 (3.5-5.1) mmol/L Chloride 99 (98-107) mmol/L Carbon Dioxide 26 (21-32) mmol/L Anion Gap 11 (3-11) BUN 12 (6-23) mg/dl Creatinine 0.79 (0.6-1.2) mg/dl Est Cr Clr Drug Dosing 127.5 ml/min Est GFR ( Amer) 115.6 ml/min Est GFR (Non-Af Amer) 99.8 ml/min BUN/Creatinine Ratio 15.2 (10-20) Glucose 119 H (70-99(Fasting)) mg/dl Lactate 1.2 (0.4-2.0) mmol/L Calcium 9.3 (8.6-10.3) mg/dl Magnesium 1.5 L (1.7-2.4) mg/dl Total Bilirubin 0.7 (0.2-1.0) mg/dl Direct Bilirubin 0.1 (0-0.2) mg/dl AST 15 (13-39) U/L ALT 22 (7-52) U/L Alkaline Phosphatase 81 (34-104) U/L Troponin I High Sens 2.4 (0-14) pg/ml Total Protein 7.8 (6.0-8.3) gm/dl Albumin 4.5 (3.4-5.0) gm/dl Procalcitonin 0.05 (0-0.5) ng/ml Urine Color Dark Yellow Urine Appearance Clear (Clear) Urine pH 8.0 H (4.5-7.5) Ur Specific [place] 1.025 (1.000-1.030) Urine Protein Trace H (Negative) Urine Glucose (UA) Negative (Negative) Urine Ketones 2+ H (Negative) Urine Blood Negative (Negative) Urine Nitrite Negative (Negative) Urine Bilirubin Negative (Negative) Urine Urobilinogen Negative (Negative) Ur Leukocyte Esterase Trace H (Negative) Urine WBC (Auto) 5-10 H (0-5) /hpf Urine RBC (Auto) 5-10 H (0-4) /hpf U Hyaline Cast (Auto) 0 (0-5) /lpf U Epithel Cells (Auto) >30 H (0-5) /lpf Urine Bacteria (Auto) Negative (Negative) Urine Test Negative (Negative) POC Ur Test NEG (NEG) Administered Medications Discontinued Medications Acetaminophen (Acetaminophen 500 Mg Tab) 1,000 mg PO NOW STA Stop: 05/23/23 19:15 Last Admin: 05/23/23 19:51 Dose: 1,000 mg Documented By: FERNANDO Sodium Chloride (Nss) 1,000 mls @ 999 mls/hr IV .Q1H1M WILTON Stop: 05/23/23 18:30 Last Infusion: 05/23/23 20:56 Dose: Infused Documented By: Admin: 05/23/23 20:35 Dose: Not Given Documented By: Admin: 05/23/23 16:38 Dose: 999 mls/hr Documented By: CPB Ceftriaxone Sodium (Rocephin) 2,000 mg in 50 mls @ 100 mls/hr IV NOW STA Stop: 05/23/23 16:46 Last Infusion: 05/23/23 17:20 Dose: Infused Documented By: Admin: 05/23/23 16:33 Dose: 100 mls/hr Documented By: CPB Sodium Chloride (Nss) 1,000 mls @ 999 mls/hr IV .Q1H1M WILTON Stop: 05/23/23 20:13 Last Admin: 05/23/23 19:52 Dose: 999 mls/hr Documented By: FERNANDO Magnesium Sulfate/Dextrose (Magnesium Sulfate / D5w) 1 gm in 100 mls @ 100 mls/hr IV NOW STA Stop: 05/23/23 20:14 Last Infusion: 05/23/23 21:58 Dose: Infused Documented By: Admin: 05/23/23 19:51 Dose: 100 mls/hr Documented By: FERNANDO Magnesium Sulfate/Dextrose (Magnesium Sulfate / D5w) 1 gm in 100 mls @ 100 mls/hr IV NOW STA Stop: 05/23/23 20:50 Last Infusion: 05/23/23 20:29 Dose: 0 mls/hr Documented By: Admin: 05/23/23 19:55 Dose: 100 mls/hr Documented By: FERNANDO Ioversol (Optiray 320 500ml) 87 ml IV ONCE ONE Stop: 05/23/23 17:51 Last Admin: 05/23/23 17:51 Dose: 87 ml Documented By: JOHANNE Ioversol (Optiray 320 125ml) 117 ml IV ONCE ONE Stop: 05/23/23 20:25 Last Admin: 05/23/23 20:25 Dose: 117 ml Documented By: HUAN Imaging Data Radiologist's Impression: Chest X-Ray 05/23/23 16:17 XR chest 1V portable CLINICAL HISTORY: Sepsis TECHNIQUE: Single frontal radiograph of the chest was obtained. Comparison: None available at the time of this dictation. FINDINGS: No lines and tubes are seen. The cardiomediastinal silhouette is normal. The lungs are clear. No evidence of pleural effusion or pneumothorax. IMPRESSION: No acute abnormalities and in particular no radiographic evidence of pneumonia. ACT 112: Negative or not required by law. Electronically signed by: Eliceo Miller M.D. 05/23/2023 5:36 PM Abdomen/Pelvis CT 05/23/23 16:18 CT abd pelvis IV con only CLINICAL HISTORY: l flank pain sepsis TECHNIQUE: Helical axial images of the abdomen and pelvis were obtained and displayed. Automated dose lowering techniques and/or adjustment according to patient size were utilized for this exam3 This exam was performed with intravenous contrast. CT DOSE: 1311. mGy.cm COMPARISON: None available at the time of this dictation. FINDINGS: Lower chest: No acute abnormality. Liver: Unremarkable. No focal lesions are seen. Gallbladder and biliary tree: Patient is status post cholecystectomy. No intra- or extrahepatic biliary ductal dilation. Pancreas: Unremarkable, no focal lesions. Spleen: Unremarkable. Adrenals: Unremarkable. Kidneys and ureters: Unremarkable. Bladder: Limited evaluation due to underdistention. Reproductive organs: Calcified exophytic lesion arising from the uterus likely represents a fibroid. Bowel: Unremarkable. Lymph nodes Retroperitoneal: Unremarkable. Pelvic: Unremarkable. Mesenteric: Unremarkable. Peritoneum: Normal. Vessels: Unremarkable. Abdominal wall: Unremarkable. Bones: Unremarkable. IMPRESSION: No acute abnormalities to explain left flank pain. ACT 112: Negative or not required by law. Electronically signed by: Eliceo Miller M.D. 05/23/2023 6:17 PM Discharge Plan Visit Data Chief Complaint: Breast Pain/Problems Stated Complaint: BREAST PAIN ED Provider: Oswaldo Juarez Discharge Problem: Sepsis, Mastitis, Leukocytosis Patient Disposition: Admitted As Inpatient Discharge Instructions Interventions: ED Discharge Assessment Last Done: 05/23/23 20:36 Discharge Problem: Sepsis Qualifiers: Sepsis type: sepsis due to unspecified organism Sepsis acute organ dysfunction status: unspecified Qualified Code(s): A41.9 - Sepsis, unspecified organism Leukocytosis Qualifiers: Leukocytosis type: unspecified Qualified Code(s): D72.829 - Elevated white blood cell count, unspecified
[2023-05-23] MEDS: cefTRIAXone SODIUM 2,000 MG/50 ML BAG IV STA (16:33)
[2023-05-23] MEDS: SODIUM CHLORIDE 0.9% 1,000 ML IV SCH ×3 (16:38→20:00)
[2023-05-23 16:57] LABS: Basophils # (auto) 0.04 K/uL (0.00-0.20); Basophils % (auto) 0.2 %; Eosinophils # (auto) 0.01 K/uL (0.00-0.50); Eosinophils % (auto) 0.1 %; Hematocrit (blood only) 42.6 % (37.0-47.0); Hemoglobin 14.8 g/dl (12.0-16.0); Immature Granulocytes # (auto) 0.07 K/uL (0.01-0.20); Immature Granulocytes % (auto) 0.4 %; Lymphocytes # (auto) 0.96 K/uL (1.20-3.40); Lymphocytes % (auto) 5.2 %; Mean Corpuscular Hemoglobin 29.6 pg (25.0-34.0); Mean Corpuscular Hgb Conc 34.7 g/dL (32.0-36.0); Mean Corpuscular Volume 85.2 fL (80.0-100.0); Mean Platelet Volume 11.1 fL (9.4-12.4); Monocytes % (auto) 5.4 %; Neutrophils # (auto) 16.31 K/uL (1.40-6.50); Neutrophils % (auto) 88.7 %; Platelet Count 271 K/uL (130-400); RDW Coefficient of Variation 12.3 % (11.5-14.5); RDW Standard Deviation 38.1 fL (36.4-46.3); White Blood Count 18.39 K/ul (4.8-10.8)
[2023-05-23 17:13] LABS: Albumin Level 4.5 gm/dl (3.4-5.0); BUN Creatinine Ratio 15.2 (10-20); Bilirubin Direct 0.1 mg/dl (0-0.2); Bilirubin,Total 0.7 mg/dl (0.2-1.0); Calcium 9.3 mg/dl (8.6-10.3); Creatinine Clr Calc Pharmacy 127.5 ml/min; Est GFR (African American) 115.6 ml/min; Est GFR (Non-African American) 99.8 ml/min; Magnesium 1.5 mg/dl (1.7-2.4); Potassium 3.5 mmol/L (3.5-5.1); Total Protein 7.8 gm/dl (6.0-8.3)
[2023-05-23 17:18] LABS: Troponin I High Sensitivity 2.4 pg/ml (0-14)
[2023-05-23 17:32] LABS: Appearance Urine Clear (Clear); Bacteria Urine Automated Negative (Negative); Bilirubin Urine Negative (Negative); Blood Urine Negative (Negative); Cast Urine Automated 0 /lpf (0-5); Color Urine Dark Yellow; Epithelial Cell Urine Auto >30 /lpf (0-5); Glucose Urine UA Negative (Negative); Ketones Urine 2+ (Negative); Leukocyte Esterase Urine Trace (Negative); Nitrite Urine Negative (Negative); Specific Gravity Urine 1.025 (1.000-1.030); Urobilinogen Urine Negative (Negative)
[2023-05-23 17:35] LABS: Protein Urine Trace (Negative)
--- NOTE | 2023-05-23 17:38 | XRay Report ---
XR chest 1V portable CLINICAL HISTORY: Sepsis TECHNIQUE: Single frontal radiograph of the chest was obtained. Comparison: None available at the time of this dictation. FINDINGS: No lines and tubes are seen. The cardiomediastinal silhouette is normal. The lungs are clear. No evid ence of pleural effusion or pneumothorax. IMPRESSION: No acute abnormalities and in particular no radiographic evidence of pneumonia. ACT 112: Negative or not required by law. Electronically signed by: Eliceo Miller M.D. 05/23/2023 5:36 PM
[2023-05-23] MEDS: OPTIRAY 320 500ml IV ONE (17:51)
[2023-05-23 17:54] LABS: Pregnancy Test, Urine Negative (Negative)
--- NOTE | 2023-05-23 18:19 | CT Scan Report ---
CT abd pelvis IV con only CLINICAL HISTORY: l flank pain sepsis TECHNIQUE: Helical axial images of the abdomen and pelvis were obtained and displayed. Automated dose lowering techniques and/or adjustment according to patient size were utilized for this exam3 This ex am was performed with intravenous contrast. CT DOSE: 1311. mGy.cm COMPARISON: None available at the time of this dictation. FINDINGS: Lower chest: No acute abnormality. Liver: Unremarkable. No focal lesions are seen. Gallbladder and biliary tree: Patient is status post cholecystectomy. No intra- or extrahepatic bilia ry ductal dilation. Pancreas: Unremarkable, no focal lesions. Spleen: Unremarkable. Adrenals: Unremarkable. Kidneys and ureters: Unremarkable. Bladder: Limited evaluation due to underdistention. Reproductive organs: Calcified exophytic lesion arising from the uterus likely represents a fibroid. Bowel: Unremarkable. Lymph nodes Retroperitoneal: Unremarkable. Pelvic: Unremarkable. Mesenteric: Unremarkable. Peritoneum: Normal. Vessels: Unremarkable. Abdominal wall: Unremarkable. Bones: Unremarkable. IMPRESSION: No acute abnormalities to explain left flank pain. ACT 112: Negative or not required by law. Electronically signed by: Eliceo Miller M.D. 05/23/2023 6:17 PM
[2023-05-23] MEDS ORDERED: ALUMINUM/MAGNESIUM SUSP 30 ML UDC PO PRN (19:20)
[2023-05-23] MEDS ORDERED: POLYETHYLENE (MIRALAX) 17 GM PACK PO PRN (19:20)
[2023-05-23] MEDS ORDERED: ONDANSETRON INJ 2 MG/ML 2 ML VIAL IV PRN (19:20)
--- NOTE | 2023-05-23 19:37 | History & Physical Report ---
Date of Service May 23, 2023 Assessment & Plan (1) Mastitis: (2) Patient is a currently breast-feeding mother: (3) Hypomagnesemia: (4) SIRS (systemic inflammatory response syndrome): Plan 32 y/o female with no prev PMH, here due to Mastitis, fever, tachycardia Mastitis SIRS criteria (>HR (132), Elevated WBC (18.39) Patient with induration and erythema on right breast. Warm to the touch Admit to Telemetry WBC: 18.39 UTI: negative for UTI Procalcitonin 0.05 BP: 96/66 - 2 L Bolus of NSS Ceftriaxone 2 gm given in ER MRSA nares ordered if positive will broad ABX NSS 125 ml/hr Blood culture Acetaminophen for fever Rocephin 2 g daily CBC am , CMP am Upper left flank pain Leg discomfort CT abd/Pel: negative for any acute pathology CXR: negative Will proceed with CTA chest as well with Venous Doppler LE CATRACHO to rule out embolus Hypomagnesemia Mag 1.5L Replace with 2 gm now Repeat tomorrow am Breast pump Dispo: Telemetry DVT prophylaxis: Hold for now, Low risk, SCDs Diet: Regular diet Code: Full code History of Present Illness Primary Care Provider: Liudmila Galvan MD 32 y/o old female with no significant PMH here due to fever and chill this morning. she is currently a 7 months old. Was diagnosed with breast eczema 2 days ago after she noted a crack on her right nipple. She is being using triamcinolone acetonide 0.1% topical cream daily. This morning she wake up with chills and had a fever of 104 F. She also states some left mild abdominal pain associated with nausea and vomiting. Additionally she refers some lower extremities discomfort. She denied any headaches, chest pain , palpitations, SOB, no cough, no congestion. No sick contacts. Denied any voiding problems At arrival at ER patient with tachycardia, Fever of 37.7C, hypotension of 96/66. 1L of NSS bolus given. Ceftriaxone 2 gm given as well. CBC with leukocytosis at 18.39. Cr: 0.79. Magnesium at 1.5. CXR with no acute abnormalities, CT abdomen/Pelvis: no acute abnormalities. U/A: negative for UTI. Magnesium 2 g for replacement ordered. Another 1 bolus of NSS given. Acetaminophen 1,000 mg once. CTA chest ordered now. MRSA nares test order now Allergies Allergy/AdvReac Type Severity Reaction Status Date / Time sulfamethoxazole Allergy Intermediate Hives (as Verified 05/23/23 18:45 [From Bactrim] child) trimethoprim [From Bactrim] Allergy Intermediate Hives (as Verified 05/23/23 18:45 child) mivacurium Allergy Unknown Acetylcholinesterase Verified 05/23/23 18:45 deficiency ("Borderline") succinylcholine Allergy Unknown Acetylcholinesterase Verified 05/23/23 18:45 deficiency ("Borderline") Home Medications Medication Instructions Recorded Confirmed Type prenat.vits,manuel,[id number] 1 tab PO DAILY 07/13/21 05/23/23 History triamcinolone acetonide 0.1 % 1 applic topical DAILY #15 grams 05/04/23 05/23/23 Rx topical cream Past Med/Surg History Medical History Acetylcholinesterase deficiency Patient's aunt went in coma with surgery > Father and brother tested and positive/Patient tested "borderline" ADD (attention deficit disorder) no meds History of COVID-21 Mar 2021, mild, no further issues HSV infection Hx cold sores Need for rhogam due to Rh negative mother Supervision of normal intrauterine in primigravida Uterine fibroid monitoring Uterine fibroid complicating care, baby not yet delivered Varicella vaccination Surgical History History of anesthesia reaction Patient's aunt went in coma with surgery > Father and brother tested and positive/Patient tested "borderline" History of cholecystectomy 10/28/20: Grade 1 view with head lifted. MAC 3, ETT 7.0. No postop issues per anesthesia progress note. History of tonsillectomy History of tooth extraction Family History Mother Hypothyroidism Father Lung cancer Multiple myeloma Grandfather Lung cancer Family/Other Breast cancer maternal cousin Denies family history of Ovarian cancer Prostate cancer Myocardial infarction Colorectal cancer Social History (Updated 09/22/22 @ 07:50 by Maya Hooper RN) Smoking Status: Never smoker Second Hand Exposure: No; Do You Dip or Chew Tobacco: No; Hx Alcohol Use: No Hx Substance Use: No Preferred Language: Czech Communication Ability: Effective Visual Impairment: No Limitations Hearing Ability: Normal Operating Room Tech Required: No Beliefs That Will Affect Care: None marital status: marital status details: Noe Marvin (32) [phone] Current Living Situation: Spouse Current Living Situation Comment: lives with spouse, child, 2 dogs. 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 Feels Safe at Home: Yes Childhood Exposure to Second-Hand Smoke: No Diet: regular Dental Care, Regularly: Yes Physical Activity Frequency: 3-4 Times per Week Seatbelt Use: always Sunscreen Use: Yes Assistive Devices: None Review of Systems Review of Systems: All systems reviewed & are unremarkable except as noted in HPI & below Physical Exam Constitutional: well developed Eyes: PERRL, conjunctivae normal, anicteric sclerae Respiratory: normal respiratory effort, lungs clear to auscultation Cardiovascular: Extremities: normal capillary refill; no calf tenderness and no edema Tachycardia, no murmurs, regular rhythm Chest (Breasts): Breast: + breast tenderness Additional Comments: Right breast with erythema surrounding the nipple. Small crack on the Right nipple. Warm to touch. Induration. Engorgement of the duct at 11-10 o'clock. Gastrointestinal (Abdomen): normal bowel sounds, soft, nontender, no hepatosplenomegaly Results & Data Results & Data Vital Signs (Past 12 Hours) Vital Signs Temp Pulse Resp BP Pulse Ox O2 Del Method 05/23/23 16:21 132 H 05/23/23 16:02 37.7 C H 159 H 18 96/66 L 98 Room Air Supervising Physician Co-Signing Physician Notes Attending addendum: I have physically seen this patient, have supervised the medical residents activities, and agree with the H&P unless as otherwise noted. Assessment and Plan: Right sided mastitis in a breast-feeding female- Admit to monitored bed SIRS criteria met with heart rate in the 140s to 150s, and elevated blood WBC of 18.39, and hypotension with blood pressure 96/66 Patient is status post 3 L normal saline in the ED With continued heart rate in the 130s to 150s Due to state, there was concern regarding possible PE as cause of tachycardia. CT angiography PE protocol was negative for PE Patient continued to receive IV fluids, and heart rate did ultimately return to the 100s to 110s category Ceftriaxone 2 g IV daily MRSA swab Acetaminophen 650 mg p.o. every 6 hours as needed for mild pain or fever Toradol 15 mg IV every 6 hours as needed for moderate pain or persistent temperature Hypomagnesemia/hypokalemia- Magnesium sulfate 2 g IV given for low magnesium of 1.5 Potassium initially 3.5, was likely hemoconcentrated and actually lower NSS + KCl 20 mEq at 125 MLS per hour Repeat laboratories in a.m. May be the remaining cause after rehydration, for cause of increased heart rate Resident Activity Tracking Resident Involvement: Resident Care Provided Care Provided: Adult Hospital Medicine
[2023-05-23] MEDS: MAGNESIUM SULFATE / D5W 1 GM/100 ML BAG IV STA ×2 (19:51→19:55)
[2023-05-23] MEDS: ACETAMINOPHEN 500 MG TAB PO STA (19:51)
[2023-05-23] MEDS: OPTIRAY 320 125ml IV ONE (20:25)
--- NOTE | 2023-05-23 20:52 | CT Scan Report ---
Exam(s): CTA CHEST With Contrast IV Amt: 117 ml optiray 320 EXAM: CT Angiography Chest With Intravenous Contrast CLINICAL HISTORY: Reason for exam: Tachycardia. TECHNIQUE: Axial computed tomographic angiography images of the chest with intravenous contrast. CTDI is 19 mGy and DLP is 526.39 mGy-cm. Automated exposure control was utilized for the study. A dose lowering technique was utilized adhering to the principles of ALARA. MIP reconstructed images were created and reviewed. CONTRAST: Patient received 117 ml optiray 320 of IV contrast COMPARISON: No relevant prior studies available. FINDINGS: Pulmonary arteries: Unremarkable. No pulmonary embolism. Aorta: No acute findings. No thoracic aortic aneurysm. Lungs: Unremarkable. No mass. No consolidation. Pleural space: Unremarkable. No significant effusion. No pneumothorax. Heart: Unremarkable. No cardiomegaly. No significant pericardial effusion. No evidence of RV dysfunction. Bones/joints: No acute fracture. No dislocation. Soft tissues: Unremarkable. Lymph nodes: Unremarkable. No enlarged lymph nodes. IMPRESSION: Normal chest CTA. No pulmonary embolism. Electronically signed by: Tobias Mcleod MD 05/23/23 20:51 PM
--- NOTE | 2023-05-23 22:09 | Ultrasound Report ---
Exam(s): US VENOUS BILATERAL LOWER EXTREMITIES EXAM: US Duplex Bilateral Lower Extremities Veins CLINICAL HISTORY: Reason for exam: Leg pain, tachycardia. TECHNIQUE: Real-time duplex ultrasound scan of the bilateral lower extremity veins integrating B-mode two-dimensional vascular structure, Doppler spectral analysis, color flow Doppler imaging and compression. COMPARISON: No relevant prior studies available. FINDINGS: Right deep veins: Unremarkable. No DVT in the right common femoral, femoral, proximal deep femoral or popliteal veins. The veins demonstrate normal color flow, are normally compressible, with normal phasic flow and/or augmentation response. Right superficial veins: Unremarkable. No thrombus in the visualized right great saphenous vein. Left deep veins: Unremarkable. No DVT in the left common femoral, femoral, proximal deep femoral or popliteal veins. The veins demonstrate normal color flow, are normally compressible, with normal phasic flow and/or augmentation response. Left superficial veins: Unremarkable. No thrombus in the visualized left great saphenous vein. Soft tissues: Lateral Gomez cyst, measuring 2.1 x 4.6 cm on the LEFT and 1.3 x 3.0 cm on the RIGHT. IMPRESSION: No DVT in the bilateral lower extremities. Electronically signed by: oTbias Mcleod MD 05/23/23 22:08 PM
[2023-05-23] MEDS: ENOXAPARIN INJ 40 MG/0.4 ML SYR SQ SCH (23:04)
[2023-05-24] MEDS ORDERED: KETOROLAC TROMETHAMINE 15 MG/ML VIAL IV PRN (01:50)
--- NOTE | 2023-05-24 03:24 | Billing Data ---
Date of Service May 24, 2023 Coding Level of Care Code 71014 INT INP/OBS CARE
[2023-05-24] MEDS: ACETAMINOPHEN 325 MG TAB PO PRN (04:10)
[2023-05-24] MEDS: NSS + 20MEQ KCL 20 MEQ/1,000 ML BAG IV SCH (04:11)
[2023-05-24 04:22] LABS: Hematocrit (blood only) 38.2 % (37.0-47.0); Hemoglobin 12.8 g/dl (12.0-16.0); Mean Corpuscular Hemoglobin 29.1 pg (25.0-34.0); Mean Corpuscular Hgb Conc 33.5 g/dL (32.0-36.0); Mean Corpuscular Volume 86.8 fL (80.0-100.0); Mean Platelet Volume 10.4 fL (9.4-12.4); Platelet Count 205 K/uL (130-400); RDW Coefficient of Variation 12.5 % (11.5-14.5); RDW Standard Deviation 39.9 fL (36.4-46.3)
[2023-05-24 04:36] LABS: Albumin Globulin Ratio 1.3 (0.9-2); Albumin Level 3.6 gm/dl (3.4-5.0); BUN Creatinine Ratio 11.7 (10-20); Bilirubin,Total 0.5 mg/dl (0.2-1.0); Calcium 8.4 mg/dl (8.6-10.3); Creatinine Clr Calc Pharmacy 167.9 ml/min; Est GFR (African American) 140.8 ml/min; Est GFR (Non-African American) 121.5 ml/min; Globulin 2.8 gm/dl (2.5-4.0); Phosphorus 2.1 mg/dl (2.5-4.9); Potassium 3.5 mmol/L (3.5-5.1); Total Protein 6.4 gm/dl (6.0-8.3)
[2023-05-24 04:49] LABS: Basophils # (auto) 0.05 K/uL (0.00-0.20); Basophils % (auto) 0.3 %; Eosinophils # (auto) 0.01 K/uL (0.00-0.50); Eosinophils % (auto) 0.1 %; Immature Granulocytes # (auto) 0.09 K/uL (0.01-0.20); Immature Granulocytes % (auto) 0.6 %; Lymphocytes # (auto) 0.64 K/uL (1.20-3.40); Lymphocytes % (auto) 4.2 %; Monocytes # (auto) 0.67 K/uL (0.11-0.59); Monocytes % (auto) 4.4 %; Neutrophils # (auto) 13.94 K/uL (1.40-6.50); Neutrophils % (auto) 90.4 %
--- NOTE | 2023-05-24 08:26 | Electrocardiogram Report ---
Test Reason : Blood Pressure : / mmHG Vent. Rate : 133 BPM Atrial Rate : 133 BPM P-R Int : 144 ms QRS Dur : 076 ms QT Int : 280 ms P-R-T Axes : 052 011 047 degrees QTc Int : 416 ms Sinus tachycardia Otherwise normal ECG No previous ECGs available Confirmed by Jorge Soria ([id number]) on 05/24/2023 8:25:55 AM Referred By: REFERRED SELF Confirmed By:Robbi Soria
[2023-05-24] MEDS: PRENATAL VITAMIN 1 TAB PO SCH (08:49)
[2023-05-24] MEDS ORDERED: IBUPROFEN 200 MG TAB PO PRN (10:40)
--- NOTE | 2023-05-24 13:20 | Discharge Summary ---
Date of Service May 24, 2023 Admission HPI Per Admitting Provider 32 y/o old female with no significant PMH here due to fever and chill this morning. she is currently a 7 months old. Was diagnosed with breast eczema 2 days ago after she noted a crack on her right nipple. She is being using triamcinolone acetonide 0.1% topical cream daily. This morning she wake up with chills and had a fever of 104 F. She also states some left mild abdominal pain associated with nausea and vomiting. Additionally she refers some lower extremities discomfort. She denied any headaches, chest pain , palpitations, SOB, no cough, no congestion. No sick contacts. Denied any voiding problems At arrival at ER patient with tachycardia, Fever of 37.7C, hypotension of 96/66. 1L of NSS bolus given. Ceftriaxone 2 gm given as well. CBC with leukocytosis at 18.39. Cr: 0.79. Magnesium at 1.5. CXR with no acute abnormalities, CT abdomen/Pelvis: no acute abnormalities. U/A: negative for UTI. Magnesium 2 g for replacement ordered. Another 1 bolus of NSS given. Acetaminophen 1,000 mg once. CTA chest ordered now. MRSA nares test order now Admission Exam Per Admitting Provider Constitutional: well developed Eyes: PERRL, conjunctivae normal, anicteric sclerae Respiratory: normal respiratory effort, lungs clear to auscultation Cardiovascular: Extremities: normal capillary refill; no calf tenderness and no edema Tachycardia, no murmurs, regular rhythm Chest (Breasts): Breast: + breast tenderness Additional Comments: Right breast with erythema surrounding the nipple. Small crack on the Right nipple. Warm to touch. Induration. Engorgement of the duct at 11-10 o'clock. Gastrointestinal (Abdomen): normal bowel sounds, soft, nontender, no hepatosplenomegaly Principal Diagnosis Mastitis of right breast Discharge Exam General: No acute distress, nondiaphoretic, well-developed, well-nourished. Skin: erythematous and indurated lateral right breast -- improving. Warm to touch. Small crack on right nipple at 12 o'clock. Engorgement of the duct at 10 o'clock -- improving. Cardiac: Regular rate and rhythm without murmurs gallops or rubs. Pulm: Clear to auscultation bilaterally without wheezes, rales or rhonchi. No retractions or accessory muscle use. Abdominal: Positive bowel sounds x 4. Soft, nontender, without masses or organomegaly. No guarding or rebound tenderness. Neuro: A&O x3. No focal neurological deficits. Discharge Data Allergies Allergy/AdvReac Type Severity Reaction Status Date / Time sulfamethoxazole Allergy Intermediate Hives (as Verified 05/23/23 18:45 [From Bactrim] child) trimethoprim [From Bactrim] Allergy Intermediate Hives (as Verified 05/23/23 18:45 child) mivacurium Allergy Unknown Acetylcholinesterase Verified 05/23/23 18:45 deficiency ("Borderline") succinylcholine Allergy Unknown Acetylcholinesterase Verified 05/23/23 18:45 deficiency ("Borderline") Consultations 05/23/23 18:53 ED Decision to Admit Stat Ordered Studies 05/23/23 16:18 CT Abd and Pelvis [CT abd pelvis IV con only] Stat 05/23/23 19:55 CTA chest w con [CT angio chest w con] Stat 05/23/23 19:57 US venous doppler LE Stat Hospital Course (1) Mastitis: Right sided mastitis in a breast-feeding female Due to state, there was concern regarding possible PE as cause of tachycardia - CT angiography PE protocol was negative for PE CXR - no acute abnormalities Venous Doppler Study - no DVT in the bilateral lower extremities Ceftriaxone 2 g IV daily MRSA swab - negative Acetaminophen 650 mg p.o. every 6 hours as needed for mild pain or fever Leukocytosis improved from 18.4 on 05/23/2023 to 15.4 on 05/24/2023 Discharged on dicloxacillin (last dose on 05/30/2023) 600 mg ibuprofen every 4 hours 650 mg acetaminophen every 4 hours (2) SIRS (systemic inflammatory response syndrome): SIRS criteria met with heart rate in the 140s to 150s, and elevated blood WBC of 18.39, and hypotension with blood pressure 96/66 on admission Heart rate returned to 100-110s category after receiving IV fluids in ED BP: 96/66-2 L bolus of NSS given in ED -- improved Procalcitonin 0.05 UA - negative CT abdomen/pelvis - negative (3) Hypomagnesemia: K 1.5 on admission Received 2 g of magnesium in ED K WNL at 2.0 on 05/24/2023 (4) Patient is a currently breast-feeding mother: Follow the recommendations from the nurse, including applying hot or cold compresses, breast massage, and rest and fluids. Continue pumping on the same schedule as you were before. In the breast with mastitis, pump until very little milk is coming out; do not empty your breast. Plan DVT prophylaxis: Hold for now, Low risk, SCDs Diet: Regular diet Code: Full code Total Time Total Time Spent Total Time Spent (In Minutes): Greater than 30 minutes spent completing this discharge process including direct patient care, medication reconciliation, documentation, review of labs and images, and coordination of care. Discharge Plan Discharge Items Patient Disposition: Home - Self-Care Reason For Visit: MASTITIS Discharge Diagnosis: Mastitis of right breast Activity: Resume your previous activity Non-emergency contact: Primary Care Provider and Tree Doctor Call non-emergency contact if: your symptoms worsen Follow-up/Referrals: Liudmila Galvan MD [Primary Care Provider] - 05/30/23 10:15 am Diet: Regular Addtl Attending Provider Instructions: You were admitted to the hospital for mastitis. Mastitis is inflammation of the breast tissue. It occurs most often in women who are breast-feeding. This was most likely caused from bacteria entering the breast tissue through the crack on your right nipple. You were treated with IV antibiotics while in the hospital. You will continue with oral antibiotics until 05/30/2023. It is important to c ontinue the full course of antibiotics, even if you are feeling better. Additionally, alternate between 600 mg of ibuprofen every 4 hours and 650 mg of acetaminophen every 4 hours for the next week. Follow the recommendations that the nurse discussed with you, including applying hot or cold compresses, breast massage, and rest and fluids. Continue pumping on the same schedule as you were before. In the breast with mastitis, pump until very little milk is coming out. Do not empty your breast. Emptying your breast causes your body to make more milk and can make symptoms worse. Please return to the hospital if your fever returns, if your breast becomes more red and swollen, if you have shortness of breath or chest pain. Pending Studies at Discharge: No Stand-Alone Forms: [facility], Work/School Release, Smoking Cessation Medications and DC Order Prescriptions: New dicloxacillin 500 mg capsule 500 mg PO Q6H Qty: 27 0RF Continued triamcinolone acetonide 0.1 % cream 1 applic topical DAILY Qty: 15 1RF Rx Instructions: Patient states she applies to breasts as needed prenat.vits,manuel,[id number] Tablet 1 tab PO DAILY Discharge Orders: Discharge Order (Routine); Ordered 05/24/23 Ordered By: Piedad Hamilton/Other Patient Handouts: ED Mastitis Admission Data Admit Date/Time: 05/23/23 19:20 Attending Provider: Chandler Zamudio Admit Provider: Josef Keith Primary Care Provider: Liudmila Galvan Other Providers: Rubens Alvarez Other Interventions: Discharge Summary Assessment (RN) Last Done: 05/24/23 11:23 Coding Level of Care Code 49574 INP/OBS DISCH >30 MIN Diagnoses Mastitis N61.0 SIRS (systemic inflammatory response syndrome) R65.10 Hypomagnesemia E83.42 Patient is a currently breast-feeding mother Z39.1
[2023-05-24] MEDS ORDERED: cefTRIAXone SODIUM 2,000 MG in DEXTROSE 5 % MINI-B 50 ML IV SCH (16:30)
== END 2023-05-24 11:59 | disposition home or self-care (01) | DRG 600 ==
LOC: ED 15:26 → EDINP 19:20 → SUATTDRO 19:20 → 1E 20:36

== ENCOUNTER 2024-08-01 11:34 | Inpatient (IN) ==
[2024-08-01] MEDS ORDERED: LIDOCAINE 1% LOCAL 20 ML VIAL INFIL PRN (12:59)
[2024-08-01] MEDS ORDERED: OXYTOCIN 30 UNITS/NSS 30 UNITS/500 ML BAG IV PRN (12:59)
[2024-08-01 13:29] LABS: Hematocrit (blood only) 34.1 % (37.0-47.0); Hemoglobin 11.8 g/dl (12.0-16.0); Mean Corpuscular Hemoglobin 29.4 pg (25.0-34.0); Mean Corpuscular Hgb Conc 34.6 g/dL (32.0-36.0); Mean Corpuscular Volume 84.8 fL (80.0-100.0); Mean Platelet Volume 11.3 fL (9.4-12.4); Platelet Count 209 K/uL (130-400); RDW Coefficient of Variation 12.5 % (11.5-14.5); RDW Standard Deviation 38.4 fL (36.4-46.3); Red Blood Count 4.02 M/uL (4.20-5.40); White Blood Count 12.09 K/ul (4.8-10.8)
--- NOTE | 2024-08-01 17:25 | History & Physical Report ---
Date of Service August 01, 2024 Assessment & Plan (1) Encounter for supervision of normal in multigravida: Plan: Admit to L&D, EFM/toco. Labs. Suspect early labor, but has made cervix change since yesterday. OK for epidural when she desires. She feels like she'd like to ambulate at this point, is agreeable to pitocin to augment labor later after she receives epidural. Admission and Anticipated Discharge Date Admission Date: August 01, 2024 History of Present Illness Chief Complaint: contractions Primary Care Provider: Liudmila Galvan MD 33yo @ 39 04/09, contractions since last night - now picking up. Was examined in office yesterday, 1.5cm dilation. Allergies Allergy/AdvReac Type Severity Reaction Status Date / Time sulfamethoxazole Allergy Intermediate Hives (as Verified 08/01/24 11:47 [From Bactrim] child) trimethoprim [From Bactrim] Allergy Intermediate Hives (as Verified 08/01/24 11:47 child) mivacurium Allergy Unknown Acetylcholinesterase Verified 08/01/24 11:47 deficiency ("Borderline") succinylcholine Allergy Unknown Acetylcholinesterase Verified 08/01/24 11:47 deficiency ("Borderline") Home Medications Medication Instructions Recorded Confirmed Type vit no.95-ferrous 1 tab PO DAILY 06/22/23 08/01/24 History fumarate 28 mg-folic acid 800 mcg tablet () Patient History Medical History Mastitis Uterine fibroid ADD (attention deficit disorder) no meds HSV infection Hx cold sores SIRS (systemic inflammatory response syndrome) Hypomagnesemia Varicella vaccination Uterine fibroid monitoring History of COVID-21 Mar 2021, mild, no further issues Acetylcholinesterase deficiency Patient's aunt went in coma with surgery > Father and brother tested and positive/Patient tested "borderline" Surgical History S/P dilatation and curettage History of cholecystectomy 10/28/20: Grade 1 view with head lifted. MAC 3, ETT 7.0. No postop issues per anesthesia progress note. History of anesthesia reaction Patient's aunt went in coma with surgery > Father and brother tested and positive/Patient tested "borderline" History of tonsillectomy History of tooth extraction Family History Mother Hypothyroidism Father Lung cancer Multiple myeloma Acetylcholinesterase deficiency Grandfather Lung cancer Family/Other Breast cancer maternal cousin Brother Acetylcholinesterase deficiency Aunt Acetylcholinesterase deficiency Denies family history of Ovarian cancer Prostate cancer Myocardial infarction Colorectal cancer Social History Smoking Status: Never smoker Second Hand Exposure: No; Do You Dip or Chew Tobacco: No; Hx Alcohol Use: No Hx Substance Use: No Preferred Language: Nauruan Communication Ability: Effective Visual Impairment: No Limitations Hearing Ability: Normal Divorce Attorney Required: No Beliefs That Will Affect Care: None marital status: marital status details: Noe Marvin ([id number]) [phone] Current Living Situation: Spouse and Family Current Living Situation Comment: lives with spouse, 2 children, dog current occupational status: employed 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 Feels Safe at Home: Yes Safety Concerns: Feels Safe At This Time Childhood Exposure to Second-Hand Smoke: No Diet: regular Dental Care, Regularly: Yes Physical Activity Frequency: 3-4 Times per Week Seatbelt Use: always Sunscreen Use: Yes Assistive Devices: None Review of Systems All systems reviewed & are unremarkable except as noted in HPI & below Physical Exam Physical Exam: FHT Cat 1 [place] Q 4-5 SVE 4/70/-2, bulging membranes Constitutional: WD/WN, vitals as above Respiratory: normal respiratory effort, lungs clear to auscultation no respiratory distress Cardiovascular: Rate/Rhythm: regular rate and regular rhythm Gastrointestinal (Abdomen): Inspection/Auscultation: abdomen normal to inspection Percussion/Palpation: abdomen soft; abdomen nontender Gravid. No s/s chorio or abruption. Skin: no rashes, warm and dry Psychiatric: A+Ox3, euthymic affect Results & Data Vital Signs (Past 12 Hours) Vital Signs Temp Pulse Resp BP 08/01/24 17:21 94 H 110/70 08/01/24 15:50 90 107/69 08/01/24 11:44 36.4 C L 18 08/01/24 11:43 96 H 108/72 Coding Level of Care Code None Diagnoses Encounter for supervision of normal in multiavida Z34.80
[2024-08-01] MEDS: LACTATED RINGER'S 1,000 ML IV PRN (19:00)
[2024-08-01] MEDS ORDERED: SODIUM CHLORIDE 0.9% PF INJ 10 ML VIAL EPI PRN (19:14)
[2024-08-01] MEDS ORDERED: NALOXONE HCL 0.4 MG/1 ML VIAL/CARP IV PRN (19:14)
[2024-08-01] MEDS ORDERED: diphenhydrAMINE 50 MG/ML VIAL IV PRN (19:14)
[2024-08-01] MEDS ORDERED: fentaNYL citrate PF 100 MCG/2 ML VIAL EPI PRN (19:14)
[2024-08-01] MEDS ORDERED: NALBUPHINE HCL INJ 10 MG/ML AMP IV PRN (19:14)
[2024-08-01] MEDS ORDERED: LIDOCAINE 2% MPF LOCAL 5 ML VIAL EPI PRN (19:14)
[2024-08-01] MEDS ORDERED: NALOXONE HCL 1 MG in SODIUM CHLORIDE 0.9% 1,000 ML IV PRN (19:14)
[2024-08-01] MEDS ORDERED: BUPIVACAINE 0.25% PF 30 ML VIAL EPI PRN (19:14)
[2024-08-01] MEDS ORDERED: ROPIVACAINE 0.5% PF 5 MG/ML 20 ML VIAL EPI PRN (19:14)
--- NOTE | 2024-08-01 19:17 | Anesthesiology Consultation ---
Date of Service August 01, 2024 Assessment & Plan Chart Review Chart Review: Acceptable Risk for Labor Epidural Consults Requested none History Height/Weight Height: 5 ft 10 in Weight: 97.069 kg Allergies Allergy/AdvReac Type Severity Reaction Status Date / Time sulfamethoxazole Allergy Intermediate Hives (as Verified 08/01/24 11:47 [From Bactrim] child) trimethoprim [From Bactrim] Allergy Intermediate Hives (as Verified 08/01/24 11:47 child) mivacurium Allergy Unknown Acetylcholinesterase Verified 08/01/24 11:47 deficiency ("Borderline") succinylcholine Allergy Unknown Acetylcholinesterase Verified 08/01/24 11:47 deficiency ("Borderline") Medications Home Medications Medication Instructions Recorded Confirmed Last Taken vit no.95-ferrous 1 tab PO DAILY 06/22/23 08/01/24 08/01/24 fumarate 28 mg-folic acid 800 mcg tablet () Active Medications Generic Name Dose Route Start Last Admin Trade Name Freq PRN Reason Stop Dose Admin Lactated Ringer's 1,000 mls @ 125 mls/hr 08/01/24 12:59 08/01/24 19:00 Lr IV 08/03/24 12:58 999 mls/hr .Q8H PRN Administration L&D Protocol Protocol Past Medical History Medical History Mastitis Uterine fibroid ADD (attention deficit disorder) no meds HSV infection Hx cold sores SIRS (systemic inflammatory response syndrome) Hypomagnesemia Varicella vaccination Uterine fibroid monitoring History of COVID-21 Mar 2021, mild, no further issues Acetylcholinesterase deficiency Patient's aunt went in coma with surgery > Father and brother tested and positive/Patient tested "borderline" Past Family History Family History Mother Hypothyroidism Father Lung cancer Multiple myeloma Acetylcholinesterase deficiency Grandfather Lung cancer Family/Other Breast cancer maternal cousin Brother Acetylcholinesterase deficiency Aunt Acetylcholinesterase deficiency Denies family history of Ovarian cancer Prostate cancer Myocardial infarction Colorectal cancer Past Surgical History Surgical History S/P dilatation and curettage History of cholecystectomy 10/28/20: Grade 1 view with head lifted. MAC 3, ETT 7.0. No postop issues per anesthesia progress note. History of anesthesia reaction Patient's aunt went in coma with surgery > Father and brother tested and positive/Patient tested "borderline" History of tonsillectomy History of tooth extraction Social History Smoking Status: Never smoker Do You Dip or Chew Tobacco: No Hx Alcohol Use: No Hx Substance Use: No substance use type: does not use Physical Exam Vital Signs Last Vital Signs Temp 36.4 C L 08/01/24 11:44 Pulse 76 08/01/24 19:15 Resp 18 08/01/24 11:44 BP 128/71 08/01/24 18:58 Pulse Ox 96 08/01/24 19:15 Testing Laboratory Results 08/01/24 13:05 Blood Type B Negative 08/01/24 13:05 Antibody Screen NEGATIVE 08/01/24 13:05
[2024-08-01] MEDS: LIDOCAINE 2%/EPINEPHRINE 1:200,000 20 ML PF ONE (19:25)
[2024-08-01] MEDS: fentANYL 2 MCG/ML BUPIVacaine 0.125%-NSS 100ML BAG EPI PRN (19:36)
[2024-08-01] MEDS: fentaNYL citrate PF 100 MCG/2 ML VIAL ONE (19:44)
[2024-08-01] MEDS: BUPIVACAINE 0.25% PF 30 ML VIAL ONE (19:52)
[2024-08-01] MEDS: fentANYL 2 MCG/ML BUPIVacaine 0.125%-NSS 100ML BAG ONE (19:52)
[2024-08-01] MEDS: fentaNYL citrate PF 100 MCG/2 ML VIAL EPI STA (19:52)
[2024-08-01] MEDS: BUPIVACAINE 0.25% PF 30 ML VIAL EPI STA (19:52)
[2024-08-01] MEDS: SODIUM CHLORIDE 0.9% PF INJ 10 ML VIAL ONE (19:52)
[2024-08-01] MEDS: LIDOCAINE 2%/EPINEPHRINE 1:200,000 20 ML PF EPI STA (19:53)
[2024-08-01] MEDS: SODIUM CHLORIDE 0.9% PF INJ 10 ML VIAL EPI STA (19:53)
[2024-08-01] MEDS: ePHEDrine sulfate 50 MG/ML AMP ONE (19:53)
--- NOTE | 2024-08-01 20:51 | Labor Progress Brief Note ---
Date of Service August 01, 2024 Subjective Comfortable with epidural. FHT Cat 1 [place] Q 2-4 SVE 4/80/-2 AROM clear fluid. Assessment & Plan Admission and Anticipated Discharge Date Admission Date: August 01, 2024 Results & Data Vital Signs (Past 12 Hours) Vital Signs Temp Pulse Resp BP Pulse Ox 08/01/24 20:45 85 97 08/01/24 20:40 85 98 08/01/24 20:38 78 106/63 08/01/24 20:35 81 97 08/01/24 20:30 82 97 08/01/24 20:25 74 97 08/01/24 20:20 85 97 08/01/24 20:18 74 104/59 L 08/01/24 20:15 82 97 08/01/24 20:12 84 104/59 L 08/01/24 20:10 77 98 08/01/24 20:07 74 18 108/57 L 08/01/24 20:05 91 H 97 08/01/24 20:03 74 107/53 L 08/01/24 20:00 92 H 97 08/01/24 19:59 18 08/01/24 19:59 18 08/01/24 19:58 87 103/57 L 08/01/24 19:55 83 97 08/01/24 19:52 101/59 L 08/01/24 19:50 91 H 97 08/01/24 19:47 78 95/52 L 08/01/24 19:45 80 16 97 08/01/24 19:41 77 92/53 L 08/01/24 19:40 83 16 99 08/01/24 19:39 77 102/56 L 08/01/24 19:37 86 98/53 L 08/01/24 19:36 82 95/50 L 08/01/24 19:35 82 18 99 08/01/24 19:34 81 100/59 L 08/01/24 19:31 91 H 120/77 08/01/24 19:30 92 H 96 08/01/24 19:25 95 H 98 08/01/24 19:20 93 08/01/24 19:20 75 08/01/24 19:20 81 93 08/01/24 19:15 76 96 08/01/24 19:10 82 94 08/01/24 19:01 36.9 C 18 08/01/24 18:58 88 128/71 08/01/24 17:21 94 H 110/70 08/01/24 15:50 90 107/69 08/01/24 11:44 36.4 C L 08/01/24 11:43 96 H 108/72 Coding Level of Care Code None
[2024-08-01] MEDS: OXYTOCIN 30 UNITS/NSS 30 UNITS/500 ML BAG IV PRN (21:37)
[2024-08-01] MEDS: ePHEDrine sulfate 50 MG/ML AMP IV PRN (22:10)
--- NOTE | 2024-08-02 03:20 | Delivery Summary ---
Vaginal Delivery Summary Date of Service August 02, 2024 Vaginal Delivery Summary [facility] Vaginal Delivery Summary: Pre-delivery diagnoses: 33yo @ 39 /, spontaneous labor, Rh negative Post-delivery diagnoses: same Procedure: spontaneous vaginal delivery Surgeon: Essence Hurst DO Complications: none Findings: Viable female . Apgars: 8/9 . Weight pending, please see nursery records Estimated blood loss: 50cc Description of delivery: The patient progressed to complete with epidural anesthesia. She then began to push. She spontaneously vaginally delivered a viable from the cephalic presentation. The head delivered in ROGER position. The anterior shoulder delivered, followed by the posterior shoulder, followed by the body. The baby was placed on mother's abdomen and a spontaneous cry was heard. Delayed cord clamping was employed, and the cord was doubly clamped and cut. Cord blood was obtained. The placenta was delivered spontaneously intact with a 3-vessel cord. The uterus and vagina were swept of clots and debris. IV pitocin was given. The uterus became firm. The cervix, vagina, and perineum were inspected and no lacerations were noted. Excellent hemostasis was observed. The mother and baby are recovering in stable and good condition in the room. Sponge and instrument counts were correct x 2. Essence Hurst DO [facility] Vaginal Delivery Charge Vaginal Delivery Codes: 84000 global code for the antepartum, delivery, and post- Delivery Type Details: [facility]
[2024-08-02] MEDS ORDERED: HYDROCORTISONE ACETATE 25 MG SUPP PR PRN (03:29)
[2024-08-02] MEDS ORDERED: bisacodyL 10 MG SUPP PR PRN (03:29)
[2024-08-02] MEDS ORDERED: IBUPROFEN 600 MG TAB PO PRN (03:29)
[2024-08-02] MEDS ORDERED: oxyCODONE/ACETAMINOPHEN 5mg/325mg TAB PO PRN (03:29)
[2024-08-02] MEDS ORDERED: OXYTOCIN 30 UNITS/NSS 30 UNITS/500 ML BAG IV PRN (03:29)
[2024-08-02] MEDS ORDERED: ACETAMINOPHEN 325 MG TAB PO PRN (03:29)
[2024-08-02] MEDS ORDERED: BENZOCAINE 20% SPRY 85 APPLN/85 GM CAN EXT PRN (03:29)
[2024-08-02] MEDS: DIPHTHER/TETAN/PERTUS Vaccine (Tdap, Adol/Adult) 0.5mL IM ONE (04:55)
[2024-08-02] MEDS: PRENATAL VITAMIN 1 TAB PO SCH (08:19)
[2024-08-02] MEDS: DOCUSATE SODIUM 100 MG CAP PO SCH (08:19)
--- NOTE | 2024-08-02 10:43 | Anesthesia Procedure Note ---
Date of Service August 02, 2024 Anesthesia Post Epidural Note Vital Signs Vital Signs: Temp Pulse Resp BP Pulse Ox O2 Del Method 36.6 C 77 16 106/72 98 Room Air 08/02/24 08:21 08/02/24 08:21 08/02/24 08:21 08/02/24 08:21 08/02/24 08:21 08/02/24 08:21 Pain Intensity Abdomen: Pain Intensity: 0 Notes Mental Status: alert / awake / arousable Nausea / Vomiting: adequately controlled Pain: adequately controlled Airway Patency, RR, SpO2: stable & adequate BP & HR: stable & adequate Hydration State: stable & adequate Neuraxial Anesthesia: was administered and sensory block is resolving Anesthetic Complications: no major complications apparent and Pt Satisfied with anesthetic care Epidural: Removed without complications and With tip intact
[2024-08-02] MEDS: bisacodyL 5 MG TABEC PO SCH (20:15)
[2024-08-03 02:56] VITALS: RESP 16
[2024-08-03 06:42] LABS: Hemoglobin 11.8 g/dl (12.0-16.0)
--- NOTE | 2024-08-03 08:14 | Obstetrical Progress Note ---
Date of Service August 03, 2024 Assessment & Plan (1) care following vaginal delivery: Plan doing well stable for dc home. desires dc. instructions reviewed. f/u 6 wk pp. breast, rh neg, baby neg, ri. Subjective Ambulation: ambulating normally Voiding: no voiding problems Diet Tolerance:: regular diet Lochia:: Small Feeding Type:: breast feeding no pain issues, ready to go home. Constitutional: + as per Subjective / HPI Physical Exam Constitutional WD/WN, vitals as above Respiratory normal respiratory effort, lungs clear to auscultation Cardiovascular Rate/Rhythm: regular rate and regular rhythm Gastrointestinal (Abdomen) Inspection/Auscultation: abdomen normal to inspection Percussion/Palpation: abdomen soft Fundus firm 1cm down Musculoskeletal nt calves no edema Neurologic grossly normal Psychiatric A+Ox3, euthymic affect Results & Data Vital Signs (Past 12 Hours) Vital Signs Temp Pulse Resp BP Pulse Ox O2 Del Method 08/03/24 02:55 98.2 F 70 16 114/71 94 Room Air 08/02/24 22:53 97.3 F L 79 18 119/75 98 Room Air
[2024-08-03 08:21] VITALS: TEMP 99.1; O2SAT 98
[2024-08-03 08:38] VITALS: BP 119/76; PULSE 82
--- NOTE | 2024-08-03 09:35 | Ultrasound Report ---
Clinical History: Pain Technique: Venous ultrasound evaluation was performed utilizing grayscale, color Doppler and wave form evaluation. Images were also obtained with and without compression Findings: The left common femoral, superficial femoral, popliteal, and visualized calf veins demonstrate full compressibility. There appears to be slow flow within the left common femoral vein. Normal flow is seen on color Doppler images. Expected waveforms were produced with augmentation maneuvers Impression: No definite evidence of left leg deep venous thrombosis Electronically signed by Chapincito Thomason 08-03-2024 09:35 AM
== END 2024-08-03 10:57 | disposition home or self-care (01) | DRG 807 ==
LOC: OPB 11:34 → 4S1 11:35 → 4E2 08-02 05:50